=== PATIENT | female | born 1945 | race Caucasian/White ===

== ENCOUNTER → 2018-08-15 | Outpatient (REF) | payer MEDICARE ==
[~2018-08-15] MED LIST: ANTIVERT12.5 MG PO; ATIVAN OR; AUGMENTIN875TAB OR; CARAFATE OR; CARAFATE1 GM PO; CIPROFLOXACN500 MG PO; CLARITIN10 M1 PO; COUMADIN1 MG; COUMADIN2.5 MG PO; COUMADIN5 MG; COUMADIN5 MG PO; COUMADIN7.5 MG PO; ELIMITE5 % EX; FAMOTIDINE20 M1 PO; FLEXERIL10 MG PO; HYDROXYZ HCL25 MG PO; LORTAB 5/3255 MG PO; LORTAB5 PO; MEDDOSEPAK PO; MELOXICAM7.5 MG PO; MOBIC7.5 MG PO; NAPROSYN500 MG PO; NO HOME MEDS; OMEPRAZOLE20 MG PO; PHENERGAN25 MG/ML IJ; PRILOSEC40 MG PO; SERTRALINE50 MG OR; SILVADENE1 % EX; TEARS NATURA OU; TESSALON200 MG PO; TORADOL IM; TORADOL30 MG/VIAL IJ; TRIAMCINOLON0.11 EX; ZESTRIL10 M1 PO; ZOSTAVAX IM
== END | disposition home or self-care (01) ==
LOC: MAMMO 07:09
PROVIDERS: ATTEND Nurse Practitioner Family
DX: Z12.31 Encounter for screening mammogram for malignant neoplasm of breast (principal); N95.1 Menopausal and female climacteric states

== ENCOUNTER 2019-07-25 | Emergency (ER) | payer MEDICARE ==
[2019-07-25] MEDS ORDERED: ZOLOFT25 MG PO (10:02)
[2019-07-25] MEDS ORDERED: AMBIEN5 MG PO (10:03)
[2019-07-25 10:21] LABS: HEMATOCRIT 40.5 % (37.0-47.0); HEMOGLOBIN 13.8 g/dl (12.0-16.0); IMMATURE GRANULOCYTES 0.3 % (0.0-5.0); MEAN CORPUSCULAR HGB CONC 34.1 g/L CALC (32.0-36.0); NEUT# 4.3 thou/uL (2.00-7.15); RED BLOOD COUNT 4.45 mill/uL (4.20-5.60); RED CELL DISTRI WIDTH 13.8 % (11.5-15.5)
[2019-07-25 10:42] LABS: ALBUMIN 3.9 g/dL (3.2-5.0); ALKALINE PHOSPHATASE 93 u/l (38-126); BILIRUBIN, TOTAL 0.7 mg/dL (0.0-1.4); BUN 9 mg/dL (8-23); BUN/CREATININE RATIO 13 (12-20 (CALC)); CHLORIDE 105 mmol/l (95-108); CREATININE 0.7 mg/dL (0.5-1.0); GFR > 60 ML/MIN (>=60 (CALC)); GFR FOR AFR.AMER. > 60 ML/MIN (>=60 (CALC)); LIPASE 57 u/l (23-300); POTASSIUM 4.3 mmol/l (3.5-5.1); SGOT/AST 32 u/l (9-36); SODIUM 135 mmol/l (137-146); TOTAL PROTEIN 6.4 g/dL (6.3-8.2)
[2019-07-25 10:43] LABS: ANION GAP 12 (6-22 (CALC))
[2019-07-25 10:44] LABS: AMYLASE < 30 u/l (30-110); CARBON DIOXIDE 22 mmol/l (22-30)
[2019-07-25 10:46] LABS: INTERNATIONAL NORMALIZED RATIO 2.7 RATIO (0.7-1.3); PROTHROMBIN TIME 26.6 SECONDS (9.0-12.5)
[2019-07-25 10:53] LABS: MYOGLOBIN 98 ng/mL (0 - 62)
[2019-07-25] MEDS ORDERED: TORADOL PO (11:07)
== END 2019-07-25 11:28 | disposition home or self-care (01) ==
PROVIDERS: Family Medicine
DX: R07.89 Other chest pain (principal); Z79.01 Long term (current) use of anticoagulants

== ENCOUNTER 2020-11-08 10:06 | Emergency (ER) | payer MEDICARE ==
[~2020-11-08] VITALS: Ht 160 cm; Wt 61.3 kg
[~2020-11-08 10:06] MED LIST changes: +AMBIEN5 MG PO; +ESCITALOPRAM OX10 MG PO; +TORADOL PO; +XARELTO10 MG PO; +ZOLOFT25 MG PO
[2020-11-08 11:28] LABS: HEMATOCRIT 43.8 % (37.0-47.0); HEMOGLOBIN 14.6 g/dl (12.0-16.0); IMMATURE GRANULOCYTES 0.3 % (0.0-5.0); MEAN CELL VOLUME 96.1 fL CALC (80.0-100.0); MEAN CORPUSCULAR HGB CONC 33.3 g/dL CAL (32.0-36.0); NEUT# 4.62 thou/uL (2.00-7.15); RED BLOOD COUNT 4.56 mill/uL (4.20-5.60); RED CELL DISTRI WIDTH 13.3 % (11.5-15.5)
[2020-11-08 11:33] LABS: ALBUMIN 4.8 g/dL (3.2-5.0); ALKALINE PHOSPHATASE 101 u/l (38-126); AMYLASE 51 u/l (30-110); ANION GAP 13 (6-22 (CALC)); BILIRUBIN, TOTAL 0.7 mg/dL (0.0-1.4); BUN 15 mg/dL (8-23); BUN/CREATININE RATIO 17 (12-20 (CALC)); CARBON DIOXIDE 28 mmol/l (22-30); CHLORIDE 99 mmol/l (95-108); CREATININE 0.9 mg/dL (0.5-1.0); GFR > 60 ML/MIN (>=60 (CALC)); GFR FOR AFR.AMER. > 60 ML/MIN (>=60 (CALC)); LIPASE 79 u/l (23-300); POTASSIUM 4.1 mmol/l (3.5-5.1); SODIUM 135 mmol/l (137-146); TOTAL PROTEIN 8.3 g/dL (6.3-8.2)
[2020-11-08 11:35] LABS: SGOT/AST 45 u/l (9-36)
[2020-11-08 14:52] VITALS: BP 121/56
[2020-11-21] MEDS ORDERED: BUPROPN HCL300 MG PO (10:24)
[2020-11-21] MEDS ORDERED: BUSPIRONE5 MG PO (10:24)
[2020-11-21] MEDS ORDERED: SENNA-TABS8.6 MG PO (10:25)
[2020-11-21] MEDS ORDERED: CALCI23 PO (10:25)
[2021-01-31] MEDS ORDERED: CIPROFLOXACN500 MG PO (09:28)
== END 2020-11-08 15:01 | disposition home or self-care (01) ==
LOC: ED 10:06
PROVIDERS: Emergency Medicine
DX: K57.91 Diverticulosis of intestine, part unspecified, without perforation or abscess with bleeding (principal); K64.8 Other hemorrhoids; K58.0 Irritable bowel syndrome with diarrhea; K22.70 Barrett's esophagus without dysplasia; Z86.718 Personal history of other venous thrombosis and embolism; Z86.73 Personal history of transient ischemic attack (TIA), and cerebral infarction without residual deficits

== ENCOUNTER 2020-11-27 09:45 | Day surgery (SDC) | payer MEDICARE ==
[~2020-11-27 09:45] MED LIST changes: +BUPROPN HCL300 MG PO; +BUSPIRONE5 MG PO; +CALCI23 PO; +SENNA-TABS8.6 MG PO
[2020-11-27] MEDS ORDERED: PERCOCET 5/325M1 TAB PO (12:07)
[2020-11-27 12:57] LABS: ALKALINE PHOSPHATASE 64 u/l (38-126); BUN 14 mg/dL (8-23); CREATININE 0.7 mg/dL (0.5-1.0); GFR > 60 ML/MIN (>=60 (CALC)); GFR FOR AFR.AMER. > 60 ML/MIN (>=60 (CALC)); SGOT/AST 25 u/l (9-36)
[2020-11-27 13:04] LABS: ALBUMIN 3.5 g/dL (3.2-5.0); BILIRUBIN, TOTAL 0.4 mg/dL (0.0-1.4); TOTAL PROTEIN 5.8 g/dL (6.3-8.2)
[2020-11-27 13:34] VITALS: BP 134/57
[2021-01-31] MEDS ORDERED: CIPROFLOXACN500 MG PO (09:28)
== END 2020-11-28 13:05 | disposition home or self-care (01) ==
LOC: ORM 09:45
PROVIDERS: ATTEND Surgery
PROC: 0DBQ7ZX Excision of Anus, Via Natural or Artificial Opening, Diagnostic (ICD-10-PCS; principal; 2020-11-27)
DX: C21.0 Malignant neoplasm of anus, unspecified (principal); K62.5 Hemorrhage of anus and rectum; Z86.73 Personal history of transient ischemic attack (TIA), and cerebral infarction without residual deficits; Z86.010 Personal history of colon polyps; Z79.01 Long term (current) use of anticoagulants
CPT/HCPCS: C9290; J0131

== ENCOUNTER 2020-12-19 07:16 | Day surgery (SDC) | payer MEDICARE ==
[~2020-12-19 07:16] MED LIST changes: +PERCOCET 5/325M1 TAB PO
--- NOTE | 2020-12-19 09:49 | NUR ---
REQUESTED PER PATIENT, PROCEDURE NOTE FORWARDED TO CANCER SPECIALIST ATT. CHARGE NURSE NEIDA TO FAX # [phone]. ALSO, FORWARDED TO PCP FOR CONTINUITY OF CARE.
[2020-12-19 09:54] VITALS: BP 128/66
[2021-01-31] MEDS ORDERED: CIPROFLOXACN500 MG PO (09:28)
== END 2020-12-19 10:10 | disposition home or self-care (01) ==
LOC: ORM 07:16
PROVIDERS: ATTEND Surgery
PROC: 0JH63XZ Insertion of Tunneled Vascular Access Device into Chest Subcutaneous Tissue and Fascia, Percutaneous Approach (ICD-10-PCS; principal; 2020-12-19)
PROC: 02HV33Z Insertion of Infusion Device into Superior Vena Cava, Percutaneous Approach (ICD-10-PCS; 2020-12-19)
PROC: B518ZZA Fluoroscopy of Superior Vena Cava, Guidance (ICD-10-PCS; 2020-12-19)
DX: C21.0 Malignant neoplasm of anus, unspecified (principal); K62.5 Hemorrhage of anus and rectum; F41.9 Anxiety disorder, unspecified; Z20.822 Contact with and (suspected) exposure to COVID-19
CPT/HCPCS: J0131

== ENCOUNTER 2021-01-27 10:19 | Emergency (ER) | payer MEDICARE ==
[2021-01-27 12:44] LABS: ALKALINE PHOSPHATASE 57 u/l (38-126); AMYLASE 31 u/l (30-110); ANION GAP 10 (6-22 (CALC)); BILIRUBIN, TOTAL 0.4 mg/dL (0.0-1.4); BUN 7 mg/dL (8-23); BUN/CREATININE RATIO 10 (12-20 (CALC)); CARBON DIOXIDE 24 mmol/l (22-30); CHLORIDE 102 mmol/l (95-108); CREATININE 0.7 mg/dL (0.5-1.0); GFR > 60 ML/MIN (>=60 (CALC)); GFR FOR AFR.AMER. > 60 ML/MIN (>=60 (CALC)); LIPASE 45 u/l (23-300); POTASSIUM 3.6 mmol/l (3.5-5.1); SGOT/AST 19 u/l (9-36); SODIUM 133 mmol/l (137-146); TOTAL PROTEIN 5.6 g/dL (6.3-8.2)
[2021-01-27 13:11] LABS: HEMATOCRIT 28.9 % (37.0-47.0); HEMOGLOBIN 9.8 g/dl (12.0-16.0); MEAN CELL VOLUME 100.3 fL CALC (80.0-100.0); MEAN CORPUSCULAR HGB CONC 33.9 g/dL CAL (32.0-36.0); NEUT# 1.38 thou/uL (2.00-7.15); RED BLOOD COUNT 2.88 mill/uL (4.20-5.60); RED CELL DISTRI WIDTH 13.8 % (11.5-15.5)
[2021-01-27 15:42] LABS: URINE BLOOD DIPSTICK SMALL (NEGATIVE); URINE COLOR YELLOW; URINE GLUCOSE - DIPSTICK NEGATIVE (NEGATIVE); URINE KETONE 15 mg/dL (NEGATIVE); URINE PROTEIN - DIPSTICK TRACE mg/dL (NEG-TRACE); URINE SPECIFIC GRAVITY >=1.030; URINE UROBILINOGEN - DIPSTICK 0.2 E.U./dL (0.2)
[2021-01-27 15:43] LABS: URINE BILIRUBIN - DIPSTICK SMALL (NEGATIVE); URINE LEUK ESTERASE SMALL (NEGATIVE); URINE NITRITE - DIPSTICK NEGATIVE (Negative)
[2021-01-27] MEDS ORDERED: CIPROFLOXACN500 MG PO (15:48)
[2021-01-27 15:51] VITALS: BP 126/68
[2021-01-27 15:56] LABS: URINE SQUAMOUS EPITHELIAL CELL FEW EPI/hpf (0-FEW); URINE WBC 50-100 WBC/hpf (0-5)
[2021-01-31] MEDS ORDERED: CIPROFLOXACN500 MG PO (09:28)
[2021-05-22] MEDS ORDERED: DIFLUCAN100 M1 PO (10:00)
[2021-05-25] MEDS ORDERED: DIFLUCAN100 M1 PO (14:05)
== END 2021-01-27 16:07 | disposition home or self-care (01) ==
LOC: ED 10:19
DX: R53.1 Weakness (principal); R11.0 Nausea; R07.9 Chest pain, unspecified; R63.0 Anorexia; Y84.2 Radiological procedure and radiotherapy as the cause of abnormal reaction of the patient, or of later complication, without mention of misadventure at the time of the procedure; C50.919 Malignant neoplasm of unspecified site of unspecified female breast; C78.89 Secondary malignant neoplasm of other digestive organs; C78.5 Secondary malignant neoplasm of large intestine and rectum; N39.0 Urinary tract infection, site not specified; B96.20 Unspecified Escherichia coli [E. coli] as the cause of diseases classified elsewhere; K52.9 Noninfective gastroenteritis and colitis, unspecified; Z86.718 Personal history of other venous thrombosis and embolism; Z86.73 Personal history of transient ischemic attack (TIA), and cerebral infarction without residual deficits; Z92.21 Personal history of antineoplastic chemotherapy

== ENCOUNTER 2021-02-16 11:54 | Emergency (ER) | payer MEDICARE ==
[~2021-02-16] VITALS: Ht 160 cm; Wt 60.4 kg
[2021-02-16 13:17] LABS: HEMATOCRIT 36.4 % (37.0-47.0); IMMATURE GRANULOCYTES 0.6 % (0.0-5.0); MEAN CELL VOLUME 100.8 fL CALC (80.0-100.0); MEAN CORPUSCULAR HGB 33.2 pG CALC (26.0-32.0); NEUT# 2.8 thou/uL (2.00-7.15); RED BLOOD COUNT 3.61 mill/uL (4.20-5.60); RED CELL DISTRI WIDTH 14.5 % (11.5-15.5)
[2021-02-16 13:25] LABS: ALBUMIN 3.6 g/dL (3.2-5.0); ALKALINE PHOSPHATASE 74 u/l (38-126); AMYLASE 32 u/l (30-110); BILIRUBIN, TOTAL 0.3 mg/dL (0.0-1.4); BUN 12 mg/dL (8-23); BUN/CREATININE RATIO 15 (12-20 (CALC)); CHLORIDE 98 mmol/l (95-108); CREATININE 0.8 mg/dL (0.5-1.0); GFR > 60 ML/MIN (>=60 (CALC)); GFR FOR AFR.AMER. > 60 ML/MIN (>=60 (CALC)); LIPASE 31 u/l (23-300); SODIUM 134 mmol/l (137-146); TOTAL PROTEIN 6.7 g/dL (6.3-8.2)
[2021-02-16 13:28] LABS: ANION GAP 8 (6-22 (CALC)); CARBON DIOXIDE 32 mmol/l (22-30); SGOT/AST 38 u/l (9-36)
[2021-02-16 13:37] LABS: MYOGLOBIN 36 ng/mL (0 - 62)
[2021-02-16 15:57] LABS: URINE BILIRUBIN - DIPSTICK NEGATIVE (NEGATIVE); URINE BLOOD DIPSTICK NEGATIVE (NEGATIVE); URINE COLOR YELLOW; URINE GLUCOSE - DIPSTICK NEGATIVE (NEGATIVE); URINE KETONE NEGATIVE (NEGATIVE); URINE LEUK ESTERASE TRACE (NEGATIVE); URINE PROTEIN - DIPSTICK NEGATIVE (NEG-TRACE); URINE SPECIFIC GRAVITY 1.025; URINE UROBILINOGEN - DIPSTICK 0.2 E.U./dL (0.2)
[2021-02-16 15:59] LABS: URINE NITRITE - DIPSTICK NEGATIVE (Negative)
[2021-02-16 16:28] VITALS: BP 158/68
[2021-05-22] MEDS ORDERED: DIFLUCAN100 M1 PO (10:00)
[2021-05-25] MEDS ORDERED: DIFLUCAN100 M1 PO (14:05)
== END 2021-02-16 16:50 | disposition home or self-care (01) ==
LOC: ED 11:54
DX: R53.1 Weakness (principal); C50.919 Malignant neoplasm of unspecified site of unspecified female breast; C79.9 Secondary malignant neoplasm of unspecified site; Z86.73 Personal history of transient ischemic attack (TIA), and cerebral infarction without residual deficits; Z86.718 Personal history of other venous thrombosis and embolism; Z92.21 Personal history of antineoplastic chemotherapy; Z92.3 Personal history of irradiation; Z20.822 Contact with and (suspected) exposure to COVID-19

== ENCOUNTER 2021-02-24 11:58 | Emergency (ER) | payer MEDICARE ==
[~2021-02-24] VITALS: Ht 160 cm; Wt 59.5 kg
[2021-02-24] MEDS ORDERED: HYDROMORPHON4 MG PO (13:31)
[2021-02-24] MEDS ORDERED: ZOFRAN4 MG/TAB PO (13:32)
[2021-02-24 14:03] LABS: HEMATOCRIT 31.5 % (37.0-47.0); HEMOGLOBIN 10.2 g/dl (12.0-16.0); IMMATURE GRANULOCYTES 0.7 % (0.0-5.0); MEAN CELL VOLUME 101.9 fL CALC (80.0-100.0); MEAN CORPUSCULAR HGB CONC 32.4 g/dL CAL (32.0-36.0); NEUT# 2.25 thou/uL (2.00-7.15); RED BLOOD COUNT 3.09 mill/uL (4.20-5.60); RED CELL DISTRI WIDTH 14.3 % (11.5-15.5)
[2021-02-24 14:14] LABS: ALBUMIN 2.9 g/dL (3.2-5.0); ALKALINE PHOSPHATASE 75 u/l (38-126); ANION GAP 9 (6-22 (CALC)); BILIRUBIN, TOTAL 0.2 mg/dL (0.0-1.4); BUN 16 mg/dL (8-23); BUN/CREATININE RATIO 25 (12-20 (CALC)); CARBON DIOXIDE 28 mmol/l (22-30); CHLORIDE 100 mmol/l (95-108); CREATININE 0.6 mg/dL (0.5-1.0); GFR > 60 ML/MIN (>=60 (CALC)); GFR FOR AFR.AMER. > 60 ML/MIN (>=60 (CALC)); POTASSIUM 4.2 mmol/l (3.5-5.1); SGOT/AST 33 u/l (9-36); SODIUM 134 mmol/l (137-146); TOTAL PROTEIN 5.3 g/dL (6.3-8.2)
[2021-02-24 18:04] LABS: URINE BILIRUBIN - DIPSTICK NEGATIVE (NEGATIVE); URINE BLOOD DIPSTICK NEGATIVE (NEGATIVE); URINE COLOR YELLOW; URINE GLUCOSE - DIPSTICK NEGATIVE (NEGATIVE); URINE KETONE TRACE mg/dL (NEGATIVE); URINE LEUK ESTERASE NEGATIVE (NEGATIVE); URINE PH 7.5 (4.5-8.0); URINE PROTEIN - DIPSTICK NEGATIVE (NEG-TRACE); URINE UROBILINOGEN - DIPSTICK 0.2 E.U./dL (0.2)
[2021-02-24 18:05] LABS: URINE NITRITE - DIPSTICK NEGATIVE (Negative)
[2021-02-24] MEDS ORDERED: ZOFRAN4 M1 PO (18:48)
[2021-02-24 19:10] VITALS: BP 153/67
== END 2021-02-24 19:10 | disposition home or self-care (01) ==
LOC: ED 11:58
PROVIDERS: Physician Assistant Surgical
DX: K62.89 Other specified diseases of anus and rectum (principal); R11.0 Nausea; K22.70 Barrett's esophagus without dysplasia; Z86.718 Personal history of other venous thrombosis and embolism; Z86.73 Personal history of transient ischemic attack (TIA), and cerebral infarction without residual deficits; Z85.3 Personal history of malignant neoplasm of breast; Z85.819 Personal history of malignant neoplasm of unspecified site of lip, oral cavity, and pharynx; Z85.048 Personal history of other malignant neoplasm of rectum, rectosigmoid junction, and anus

== ENCOUNTER 2021-04-29 02:22 | Emergency (ER) | payer MEDICARE ==
[~2021-04-29] VITALS: Wt 55.0 kg
[~2021-04-29 02:22] MED LIST changes: +HYDROMORPHON4 MG PO; +ZOFRAN4 M1 PO; +ZOFRAN4 MG/TAB PO
[2021-04-29] MEDS ORDERED: SENNA-TABS8.6 MG PO (02:39)
[2021-04-29] MEDS ORDERED: MIRALAX17 GM PO (02:40)
[2021-04-29] MEDS ORDERED: PREPARATION H PR (02:41)
[2021-04-29] MEDS ORDERED: BUPROPION100 MG PO (02:42)
[2021-04-29] MEDS ORDERED: XANAX0.25 MG PO (02:43)
[2021-04-29] MEDS ORDERED: TRAZODONE50 MG PO (02:44)
[2021-04-29 02:59] LABS: HEMATOCRIT 35.7 % (37.0-47.0); IMMATURE GRANULOCYTES 0.6 % (0.0-5.0); MEAN CELL VOLUME 95.7 fL CALC (80.0-100.0); MEAN CORPUSCULAR HGB 31.6 pG CALC (26.0-32.0); MEAN CORPUSCULAR HGB CONC 33.1 g/dL CAL (32.0-36.0); NEUT# 7.27 thou/uL (2.00-7.15); RED BLOOD COUNT 3.73 mill/uL (4.20-5.60); RED CELL DISTRI WIDTH 14.2 % (11.5-15.5)
[2021-04-29 03:00] LABS: HEMOGLOBIN 11.8 g/dl (12.0-16.0)
[2021-04-29 03:15] LABS: AMYLASE 46 u/l (30-110); BILIRUBIN, TOTAL 0.4 mg/dL (0.0-1.4); BUN 12 mg/dL (8-23); BUN/CREATININE RATIO 17 (12-20 (CALC)); CARBON DIOXIDE 30 mmol/l (22-30); CHLORIDE 107 mmol/l (95-108); CREATININE 0.7 mg/dL (0.5-1.0); GFR > 60 ML/MIN (>=60 (CALC)); GFR FOR AFR.AMER. > 60 ML/MIN (>=60 (CALC)); LIPASE 122 u/l (23-300); POTASSIUM 3.5 mmol/l (3.5-5.1); SGOT/AST 25 u/l (9-36); TOTAL PROTEIN 5.9 g/dL (6.3-8.2)
[2021-04-29 03:16] LABS: INTERNATIONAL NORMALIZED RATIO 0.9 RATIO (0.7-1.3); PROTHROMBIN TIME 9.9 SECONDS (9.0-12.5)
[2021-04-29 03:18] LABS: ALBUMIN 3.4 g/dL (3.2-5.0); ALKALINE PHOSPHATASE 65 u/l (38-126); ANION GAP 10 (6-22 (CALC)); SODIUM 143 mmol/l (137-146)
[2021-04-29 06:24] VITALS: BP 123/60
[2021-04-29 06:41] LABS: URINE BILIRUBIN - DIPSTICK NEGATIVE (NEGATIVE); URINE BLOOD DIPSTICK NEGATIVE (NEGATIVE); URINE COLOR YELLOW; URINE GLUCOSE - DIPSTICK NEGATIVE (NEGATIVE); URINE KETONE NEGATIVE (NEGATIVE); URINE LEUK ESTERASE NEGATIVE (NEGATIVE); URINE PH 7.5 (4.5-8.0); URINE PROTEIN - DIPSTICK NEGATIVE (NEG-TRACE); URINE SPECIFIC GRAVITY 1.015; URINE UROBILINOGEN - DIPSTICK 0.2 E.U./dL (0.2)
[2021-04-29 06:47] LABS: URINE NITRITE - DIPSTICK NEGATIVE (Negative)
--- NOTE | 2021-04-29 09:32 | NUR ---
PATIENT CALLED STATES WOULD LIKE TO SCHEDULE FOLLOW UP FROM ER VISIT. ATTEMPTED TO WORK IN PATIENT TODAY 04/29/21 IN OFFICE TO REVISIT WITH MD. PATIENT DECLINED STATED SHE COULD NOT COME IN "TODAY" RECOMMENDED TO FOLLOW UP WITH SPECIALIST PREVIOUSLY REFERRED BY DR. MELENDEZ TO DR. HASSAN FOR CONTINUE OF CARE. SHE STATED SHE WOULD LIKE AN APPOINTMENT "NEXT WEEK" WITH DR. MELENDEZ AND WILL CALL HER SPECIALIST TODAY FOR AN "APPOINTMENT LATER THIS WEEK" ADVISED PATIENT TO CALL OUR OFFICE IF SYMPTOMS CHANGE OR WOULD LIKE TO BE SEEN TODAY. NO FURTHER CONCERNS VOICED.
[2021-04-29] MEDS ORDERED: MEGACE ES PO (11:50)
[2021-04-29] MEDS ORDERED: ONDANSETRON HCL8 MG PO (11:50)
[2021-04-29] MEDS ORDERED: MIRTAZAPINE15 MG PO (11:50)
[2021-04-29] MEDS ORDERED: TRAMADOL HCL50 MG PO (11:51)
[2021-04-29] MEDS ORDERED: PROTONIX40 M2 PO (11:51)
[2021-04-30] MEDS ORDERED: AMOX/K CLAV875 M1 PO (11:41)
[2021-04-30] MEDS ORDERED: ZOFRAN4 MG/TAB PO (11:42)
== END 2021-04-29 06:30 | disposition home or self-care (01) ==
LOC: ED 02:22
DX: R10.84 Generalized abdominal pain (principal); K63.89 Other specified diseases of intestine; R11.2 Nausea with vomiting, unspecified; R19.7 Diarrhea, unspecified; C50.919 Malignant neoplasm of unspecified site of unspecified female breast; C79.9 Secondary malignant neoplasm of unspecified site; Z92.3 Personal history of irradiation; Z92.21 Personal history of antineoplastic chemotherapy; Z86.73 Personal history of transient ischemic attack (TIA), and cerebral infarction without residual deficits; Z86.718 Personal history of other venous thrombosis and embolism

== ENCOUNTER 2021-04-29 11:23 | Observation (INO) | payer MEDICARE ==
[~2021-04-29] VITALS: Ht 162.6 cm; Wt 78.4 kg
[~2021-04-29 11:23] MED LIST changes: +BUPROPION100 MG PO; +MIRALAX17 GM PO; +PREPARATION H PR; +TRAZODONE50 MG PO; +XANAX0.25 MG PO
[2021-04-29] MEDS ORDERED: ONDANSETRON HCL8 MG PO (11:50)
[2021-04-29] MEDS ORDERED: MEGACE ES PO (11:50)
[2021-04-29] MEDS ORDERED: MIRTAZAPINE15 MG PO (11:50)
[2021-04-29] MEDS ORDERED: PROTONIX40 M2 PO (11:51)
[2021-04-29] MEDS ORDERED: TRAMADOL HCL50 MG PO (11:51)
[2021-04-29 11:52] VITALS: BP 132/87
[2021-04-29 19:00] VITALS: BP 118/58
[2021-04-30 04:00] VITALS: BP 119/44
[2021-04-30 06:11] LABS: IMMATURE GRANULOCYTES 0.3 % (0.0-5.0); MEAN CELL VOLUME 96.9 fL CALC (80.0-100.0); MEAN CORPUSCULAR HGB 31.7 pG CALC (26.0-32.0); MEAN CORPUSCULAR HGB CONC 32.7 g/dL CAL (32.0-36.0); NEUT# 2.83 thou/uL (2.00-7.15); RED BLOOD COUNT 2.9 mill/uL (4.20-5.60); RED CELL DISTRI WIDTH 14.5 % (11.5-15.5)
[2021-04-30 06:19] LABS: HEMATOCRIT 28.1 % (37.0-47.0); HEMOGLOBIN 9.2 g/dl (12.0-16.0)
[2021-04-30 06:24] LABS: ANION GAP 5 (6-22 (CALC)); BUN 5 mg/dL (8-23); BUN/CREATININE RATIO 8 (12-20 (CALC)); CARBON DIOXIDE 30 mmol/l (22-30); CHLORIDE 105 mmol/l (95-108); CREATININE 0.6 mg/dL (0.5-1.0); GFR > 60 ML/MIN (>=60 (CALC)); GFR FOR AFR.AMER. > 60 ML/MIN (>=60 (CALC)); POTASSIUM 3.4 mmol/l (3.5-5.1); SODIUM 137 mmol/l (137-146)
[2021-04-30 07:40] VITALS: BP 134/80
[2021-04-30 10:54] VITALS: BP 117/57
[2021-04-30] MEDS ORDERED: AMOX/K CLAV875 M1 PO (11:41)
[2021-04-30] MEDS ORDERED: ZOFRAN4 MG/TAB PO (11:42)
== END 2021-04-30 12:50 | disposition home health service (06) ==
LOC: MS2 11:23
PROVIDERS: ADMIT Surgery; ATTEND Hospitalist
DX: K52.9 Noninfective gastroenteritis and colitis, unspecified (principal); D68.9 Coagulation defect, unspecified; K21.9 Gastro-esophageal reflux disease without esophagitis; F41.9 Anxiety disorder, unspecified; F32.9 Major depressive disorder, single episode, unspecified; Z86.73 Personal history of transient ischemic attack (TIA), and cerebral infarction without residual deficits; Z87.891 Personal history of nicotine dependence; Z86.718 Personal history of other venous thrombosis and embolism; Z85.048 Personal history of other malignant neoplasm of rectum, rectosigmoid junction, and anus; Z85.3 Personal history of malignant neoplasm of breast; Z79.01 Long term (current) use of anticoagulants; R11.10 Vomiting, unspecified; R10.84 Generalized abdominal pain; K63.89 Other specified diseases of intestine; R11.2 Nausea with vomiting, unspecified; R19.7 Diarrhea, unspecified; C50.919 Malignant neoplasm of unspecified site of unspecified female breast; Z92.3 Personal history of irradiation; Z92.21 Personal history of antineoplastic chemotherapy
CPT/HCPCS: G0378; G0379

== ENCOUNTER 2021-06-15 08:06 | Observation (INO) | payer MEDICARE ==
[~2021-06-15] VITALS: Ht 162.6 cm; Wt 51.0 kg
[~2021-06-15 08:06] MED LIST changes: +AMOX/K CLAV875 M1 PO; +DIFLUCAN100 M1 PO; +MEGACE ES PO; +MIRTAZAPINE15 MG PO; +ONDANSETRON HCL8 MG PO; +PROTONIX40 M2 PO; +TRAMADOL HCL50 MG PO
--- NOTE | 2021-06-15 08:06 | NUR ---
PT TO ROOM VIA WC IN NO ACUTE DISTRESS WITH AT SIDE
[2021-06-15 08:41] LABS: HEMATOCRIT 39.1 % (37.0-47.0); HEMOGLOBIN 12.4 g/dl (12.0-16.0); IMMATURE GRANULOCYTES 0.2 % (0.0-5.0); MEAN CORPUSCULAR HGB 31.1 pG CALC (26.0-32.0); MEAN CORPUSCULAR HGB CONC 31.7 g/dL CAL (32.0-36.0); NEUT# 3.89 thou/uL (2.00-7.15); RED BLOOD COUNT 3.99 mill/uL (4.20-5.60); RED CELL DISTRI WIDTH 14.3 % (11.5-15.5)
[2021-06-15 08:42] LABS: GFR > 60 ML/MIN (>=60 (CALC)); GFR FOR AFR.AMER. > 60 ML/MIN (>=60 (CALC))
[2021-06-15] MEDS ORDERED: MEGESTROL AC20 MG PO (08:42)
[2021-06-15] MEDS ORDERED: TRAZODONE50 MG PO (08:43)
[2021-06-15] MEDS ORDERED: BUSPIRONE10 MG PO (08:44)
--- NOTE | 2021-06-15 08:49 | NUR ---
IV INSERTED, LABS COLLECTED, PATIENT AMBULATED TO RESTROOM AND SUPPLIED URINE SAMPLE. WARM BLANKETS APPLIED. RECONNECTED TO THE MONITOR. LIGHTS DIMMED. PATIENT MEDICATED FOR CT SCAN CONTRAST. NO ACUTE DISTRESS. DECLINES FURTHER NEEDS AT THIS TIME.
[2021-06-15 08:56] LABS: ALBUMIN 3.5 g/dL (3.2-5.0); ALKALINE PHOSPHATASE 67 u/l (38-126); ANION GAP 9 (6-22 (CALC)); BILIRUBIN, TOTAL 0.5 mg/dL (0.0-1.4); BUN 14 mg/dL (8-23); BUN/CREATININE RATIO 18 (12-20 (CALC)); CARBON DIOXIDE 28 mmol/l (22-30); CHLORIDE 103 mmol/l (95-108); CREATININE 0.7 mg/dL (0.5-1.0); GFR > 60 ML/MIN (>=60 (CALC)); GFR FOR AFR.AMER. > 60 ML/MIN (>=60 (CALC)); POTASSIUM 3.5 mmol/l (3.5-5.1); SGOT/AST 18 u/l (9-36); SODIUM 136 mmol/l (137-146); TOTAL PROTEIN 6.3 g/dL (6.3-8.2)
[2021-06-15 09:20] LABS: URINE BILIRUBIN - DIPSTICK NEGATIVE (NEGATIVE); URINE BLOOD DIPSTICK TRACE-INTACT (NEGATIVE); URINE COLOR YELLOW; URINE GLUCOSE - DIPSTICK NEGATIVE (NEGATIVE); URINE KETONE TRACE mg/dL (NEGATIVE); URINE LEUK ESTERASE TRACE (NEGATIVE); URINE PH 5.5 (4.5-8.0); URINE PROTEIN - DIPSTICK TRACE mg/dL (NEG-TRACE); URINE SPECIFIC GRAVITY >=1.030; URINE UROBILINOGEN - DIPSTICK 0.2 E.U./dL (0.2)
[2021-06-15 09:21] LABS: URINE NITRITE - DIPSTICK NEGATIVE (Negative)
--- NOTE | 2021-06-15 09:50 | NUR ---
Reassessment of patient completed. No distress noted.
--- NOTE | 2021-06-15 10:49 | NUR ---
Reassessment of patient completed. No distress noted.
--- NOTE | 2021-06-15 13:10 | NUR ---
IV REMOVED WITHOUT DIFFICULTY. UPDATED ON WAIT FOR D/C , STATES UNDERSTANDING
--- NOTE | 2021-06-15 13:35 | NUR ---
Discharge instructions given. Patient verbalizes understanding of same. Discharged in stable condition via Wheelchair to Home with spouse. All belongings sent with pt.
[2021-06-15 13:45] VITALS: BP 133/60
== END 2021-06-15 13:35 | disposition home or self-care (01) ==
LOC: ED 08:06 → ED-I 09:50 → ED 13:35 → ED-I 13:35
PROVIDERS: Family Medicine; ADMIT Hospitalist; ATTEND Hospitalist
DX: T82.848A Pain due to vascular prosthetic devices, implants and grafts, initial encounter (principal); C15.9 Malignant neoplasm of esophagus, unspecified; C50.919 Malignant neoplasm of unspecified site of unspecified female breast; C79.9 Secondary malignant neoplasm of unspecified site; D68.2 Hereditary deficiency of other clotting factors; K21.9 Gastro-esophageal reflux disease without esophagitis; F41.9 Anxiety disorder, unspecified; F32.A Depression, unspecified; Y83.8 Other surgical procedures as the cause of abnormal reaction of the patient, or of later complication, without mention of misadventure at the time of the procedure; Z86.73 Personal history of transient ischemic attack (TIA), and cerebral infarction without residual deficits; Z86.718 Personal history of other venous thrombosis and embolism; Z91.041 Radiographic dye allergy status; Z95.828 Presence of other vascular implants and grafts; Z87.891 Personal history of nicotine dependence; Z85.048 Personal history of other malignant neoplasm of rectum, rectosigmoid junction, and anus; Z20.822 Contact with and (suspected) exposure to COVID-19
CPT/HCPCS: Q9967

== ENCOUNTER 2021-07-01 16:02 | Emergency (ER) | payer MEDICARE ==
[~2021-07-01] VITALS: Ht 162.6 cm; Wt 52.0 kg
[~2021-07-01 16:02] MED LIST changes: +BUSPIRONE10 MG PO; +MEGESTROL AC20 MG PO
[2021-07-01 16:50] LABS: HEMOGLOBIN 12.1 g/dl (12.0-16.0); IMMATURE GRANULOCYTES 0.8 % (0.0-5.0); MEAN CELL VOLUME 97.4 fL CALC (80.0-100.0); MEAN CORPUSCULAR HGB CONC 31.8 g/dL CAL (32.0-36.0); NEUT# 2.85 thou/uL (2.00-7.15); RED BLOOD COUNT 3.9 mill/uL (4.20-5.60); RED CELL DISTRI WIDTH 14.6 % (11.5-15.5)
[2021-07-01 17:09] LABS: ALBUMIN 3.9 g/dL (3.2-5.0); ALKALINE PHOSPHATASE 74 u/l (38-126); ANION GAP 14 (6-22 (CALC)); BILIRUBIN, TOTAL 0.3 mg/dL (0.0-1.4); BUN 15 mg/dL (8-23); BUN/CREATININE RATIO 17 (12-20 (CALC)); CARBON DIOXIDE 24 mmol/l (22-30); CHLORIDE 105 mmol/l (95-108); CREATININE 0.9 mg/dL (0.5-1.0); GFR > 60 ML/MIN (>=60 (CALC)); GFR FOR AFR.AMER. > 60 ML/MIN (>=60 (CALC)); POTASSIUM 3.7 mmol/l (3.5-5.1); SGOT/AST 24 u/l (9-36); SODIUM 139 mmol/l (137-146); TOTAL PROTEIN 6.5 g/dL (6.3-8.2)
[2021-07-01 17:45] LABS: MYOGLOBIN 21 ng/mL (0 - 62)
[2021-07-01 17:52] VITALS: BP 144/70
== END 2021-07-01 18:09 | disposition home or self-care (01) ==
LOC: ED 16:02
PROVIDERS: Emergency Medicine
DX: U07.1 COVID-19 (principal); D68.2 Hereditary deficiency of other clotting factors; Z85.3 Personal history of malignant neoplasm of breast; Z86.73 Personal history of transient ischemic attack (TIA), and cerebral infarction without residual deficits; Z86.718 Personal history of other venous thrombosis and embolism; R06.02 Shortness of breath

== ENCOUNTER 2021-09-10 08:57 | Day surgery (SDC) | payer MEDICARE ==
[~2021-09-10] VITALS: Ht 160 cm; Wt 52.6 kg
[~2021-09-10 08:57] MED LIST changes: +D 10001000 UNIT PO; +TRAMADOL HYDROC50 M1 PO; +WELLBUTRIN XL300 MG PO
[2021-09-10] MEDS ORDERED: HYDROCORTI100 MG/60 PR (12:08)
[2021-09-10 12:20] VITALS: BP 113/56
== END 2021-09-10 12:55 | disposition home or self-care (01) ==
LOC: ENDO 08:57 → ORM 09:30 → ENDO 12:55
PROVIDERS: ATTEND Surgery
PROC: 0DBH8ZX Excision of Cecum, Via Natural or Artificial Opening Endoscopic, Diagnostic (ICD-10-PCS; principal; 2021-09-10)
PROC: 0DBL8ZX Excision of Transverse Colon, Via Natural or Artificial Opening Endoscopic, Diagnostic (ICD-10-PCS; 2021-09-10)
PROC: 0DBP8ZX Excision of Rectum, Via Natural or Artificial Opening Endoscopic, Diagnostic (ICD-10-PCS; 2021-09-10)
PROC: 0DBM8ZX Excision of Descending Colon, Via Natural or Artificial Opening Endoscopic, Diagnostic (ICD-10-PCS; 2021-09-10)
PROC: 0JPT3WZ Removal of Totally Implantable Vascular Access Device from Trunk Subcutaneous Tissue and Fascia, Percutaneous Approach (ICD-10-PCS; 2021-09-10)
PROC: 02PY33Z Removal of Infusion Device from Great Vessel, Percutaneous Approach (ICD-10-PCS; 2021-09-10)
DX: K62.7 Radiation proctitis (principal); D12.0 Benign neoplasm of cecum; D12.4 Benign neoplasm of descending colon; D12.3 Benign neoplasm of transverse colon; K63.89 Other specified diseases of intestine; Z45.2 Encounter for adjustment and management of vascular access device; K21.9 Gastro-esophageal reflux disease without esophagitis; D68.9 Coagulation defect, unspecified; F32.A Depression, unspecified; F41.9 Anxiety disorder, unspecified; Y84.2 Radiological procedure and radiotherapy as the cause of abnormal reaction of the patient, or of later complication, without mention of misadventure at the time of the procedure; Z85.048 Personal history of other malignant neoplasm of rectum, rectosigmoid junction, and anus; Z79.01 Long term (current) use of anticoagulants; Z86.718 Personal history of other venous thrombosis and embolism; Z87.891 Personal history of nicotine dependence; Z92.21 Personal history of antineoplastic chemotherapy
CPT/HCPCS: C9290

== ENCOUNTER 2021-11-10 06:59 | Emergency (ER) | payer MEDICARE ==
[~2021-11-10] VITALS: Ht 160 cm; Wt 59.0 kg
[2021-11-10] VITALS (9 sets, daily range): BP systolic 115–235; BP diastolic 56–130
[~2021-11-10 06:59] MED LIST changes: +CARAFATE PO; +CARAFATE1 GM/10 M1 PR; +HYDROCORTI100 MG/60 PR
[2021-11-10] MEDS ORDERED: B-121000 MC1 PO (07:24)
[2021-11-10] MEDS ORDERED: MIRALAX MIX-IN17 GM (07:25)
[2021-11-10] MEDS ORDERED: SENNA-TABS8.6 MG PO (07:25)
[2021-11-10] MEDS ORDERED: PREPARATIO1 RE (07:26)
[2021-11-10 07:27] LABS: HEMATOCRIT 36.8 % (37.0-47.0); HEMOGLOBIN 11.8 g/dl (12.0-16.0); IMMATURE GRANULOCYTES 0.2 % (0.0-5.0); MEAN CELL VOLUME 97.1 fL CALC (80.0-100.0); MEAN CORPUSCULAR HGB 31.1 pG CALC (26.0-32.0); MEAN CORPUSCULAR HGB CONC 32.1 g/dL CAL (32.0-36.0); NEUT# 4.88 thou/uL (2.00-7.15); RED BLOOD COUNT 3.79 mill/uL (4.20-5.60); RED CELL DISTRI WIDTH 14.7 % (11.5-15.5)
[2021-11-10 08:04] LABS: ALBUMIN 3.9 g/dL (3.2-5.0); ALKALINE PHOSPHATASE 76 u/l (38-126); ANION GAP 12 (6-22 (CALC)); BILIRUBIN, TOTAL 0.4 mg/dL (0.0-1.4); BUN 20 mg/dL (8-23); BUN/CREATININE RATIO 21 (12-20 (CALC)); CARBON DIOXIDE 24 mmol/l (22-30); CHLORIDE 106 mmol/l (95-108); GFR 54 ML/MIN (>=60 (CALC)); GFR FOR AFR.AMER. > 60 ML/MIN (>=60 (CALC)); POTASSIUM 4.2 mmol/l (3.5-5.1); SGOT/AST 18 u/l (9-36); SODIUM 138 mmol/l (137-146); TOTAL PROTEIN 6.4 g/dL (6.3-8.2)
== END 2021-11-10 09:36 | disposition home or self-care (01) ==
LOC: ED 06:59
PROVIDERS: Family Medicine
PROC: 0HQ1XZZ Repair Face Skin, External Approach (ICD-10-PCS; principal; 2021-11-10)
DX: S06.0X0A Concussion without loss of consciousness, initial encounter (principal); S01.112A Laceration without foreign body of left eyelid and periocular area, initial encounter; D68.2 Hereditary deficiency of other clotting factors; W01.190A Fall on same level from slipping, tripping and stumbling with subsequent striking against furniture, initial encounter; Y92.003 Bedroom of unspecified non-institutional (private) residence as the place of occurrence of the external cause; Z86.73 Personal history of transient ischemic attack (TIA), and cerebral infarction without residual deficits; Z86.718 Personal history of other venous thrombosis and embolism; Z85.3 Personal history of malignant neoplasm of breast; Z79.01 Long term (current) use of anticoagulants

== ENCOUNTER 2022-01-06 13:29 | Observation (INO) | payer MEDICARE ==
[~2022-01-06] VITALS: Ht 160 cm; Wt 56.4 kg
[~2022-01-06 13:29] MED LIST changes: +B-121000 MC1 PO; +MIRALAX MIX-IN17 GM; +PREPARATIO1 RE
[2022-01-06 13:45] VITALS: BP 145/74
[2022-01-06 19:23] VITALS: BP 148/69
[2022-01-07 04:19] VITALS: BP 141/66
[2022-01-07 05:30] LABS: HEMATOCRIT 36.7 % (37.0-47.0); HEMOGLOBIN 12.1 g/dl (12.0-16.0); MEAN CELL VOLUME 96.3 fL CALC (80.0-100.0); MEAN CORPUSCULAR HGB 31.8 pG CALC (26.0-32.0); RED BLOOD COUNT 3.81 mill/uL (4.20-5.60); RED CELL DISTRI WIDTH 14.5 % (11.5-15.5)
[2022-01-07 05:59] LABS: ANION GAP 9 (6-22 (CALC)); BUN 9 mg/dL (8-23); BUN/CREATININE RATIO 11 (12-20 (CALC)); CARBON DIOXIDE 23 mmol/l (22-30); CHLORIDE 107 mmol/l (95-108); CREATININE 0.8 mg/dL (0.5-1.0); GFR FOR AFR.AMER. > 60 ML/MIN (>=60 (CALC)); GFR OTHER RACES > 60 ML/MIN (>=60 (CALC)); POTASSIUM 3.7 mmol/l (3.5-5.1); SODIUM 135 mmol/l (137-146)
[2022-01-07 07:16] VITALS: BP 134/51
[2022-01-07] MEDS ORDERED: BUDESONIDE PR (11:22)
[2022-01-07] MEDS ORDERED: MEDDOSEPAK PO (11:26)
[2022-01-07 12:00] VITALS: BP 121/102
[2022-01-07 12:58] VITALS: BP 128/70
== END 2022-01-07 12:59 | disposition home or self-care (01) ==
LOC: MS2 13:29
PROVIDERS: ADMIT Surgery; ATTEND Internal Medicine
PROC: 0DBL8ZX Excision of Transverse Colon, Via Natural or Artificial Opening Endoscopic, Diagnostic (ICD-10-PCS; principal; 2022-01-07)
PROC: 0DB48ZX Excision of Esophagogastric Junction, Via Natural or Artificial Opening Endoscopic, Diagnostic (ICD-10-PCS; 2022-01-07)
DX: K62.7 Radiation proctitis (principal); K62.5 Hemorrhage of anus and rectum; D12.3 Benign neoplasm of transverse colon; K57.30 Diverticulosis of large intestine without perforation or abscess without bleeding; K44.9 Diaphragmatic hernia without obstruction or gangrene; K20.90 Esophagitis, unspecified without bleeding; K21.9 Gastro-esophageal reflux disease without esophagitis; F41.9 Anxiety disorder, unspecified; F32.A Depression, unspecified; K58.9 Irritable bowel syndrome, unspecified; C20 Malignant neoplasm of rectum; Y84.2 Radiological procedure and radiotherapy as the cause of abnormal reaction of the patient, or of later complication, without mention of misadventure at the time of the procedure; Z87.891 Personal history of nicotine dependence; Z86.718 Personal history of other venous thrombosis and embolism; Z20.822 Contact with and (suspected) exposure to COVID-19
CPT/HCPCS: G0378; G0379

== ENCOUNTER 2022-04-27 08:12 | Day surgery (SDC) | payer MEDICARE ==
[~2022-04-27] VITALS: Ht 160 cm; Wt 61.2 kg
[~2022-04-27 08:12] MED LIST changes: +BUDESONIDE PR
[2022-04-27] MEDS ORDERED: MEDDOSEPAK PO (10:58)
[2022-04-27 12:29] VITALS: BP 137/67
== END 2022-04-27 12:19 | disposition home or self-care (01) ==
LOC: ENDO 08:12 → ORM 09:35 → ENDO 12:19
PROVIDERS: ATTEND Surgery
PROC: 0DJD8ZZ Inspection of Lower Intestinal Tract, Via Natural or Artificial Opening Endoscopic (ICD-10-PCS; principal; 2022-04-27)
PROC: 0DJ08ZZ Inspection of Upper Intestinal Tract, Via Natural or Artificial Opening Endoscopic (ICD-10-PCS; 2022-04-27)
DX: K62.7 Radiation proctitis (principal); K29.70 Gastritis, unspecified, without bleeding; K44.9 Diaphragmatic hernia without obstruction or gangrene; E78.5 Hyperlipidemia, unspecified; F41.9 Anxiety disorder, unspecified; D68.2 Hereditary deficiency of other clotting factors; G25.0 Essential tremor; Y84.2 Radiological procedure and radiotherapy as the cause of abnormal reaction of the patient, or of later complication, without mention of misadventure at the time of the procedure; Z92.3 Personal history of irradiation; Z85.3 Personal history of malignant neoplasm of breast; Z85.048 Personal history of other malignant neoplasm of rectum, rectosigmoid junction, and anus

== ENCOUNTER 2022-07-28 11:14 | Emergency (ER) | payer MEDICARE ==
[2022-07-28] VITALS (8 sets, daily range): BP systolic 113–162; BP diastolic 45–136
[~2022-07-28] VITALS: Ht 160 cm; Wt 54.0 kg
[~2022-07-28 11:14] MED LIST changes: +PERCOCET 5/321 COMBO PO
[2022-07-28 12:20] LABS: GFR FOR AFR.AMER. > 60 ML/MIN (>=60 (CALC)); GFR OTHER RACES > 60 ML/MIN (>=60 (CALC))
[2022-07-28 12:21] LABS: URINE BILIRUBIN - DIPSTICK NEGATIVE (NEGATIVE); URINE BLOOD DIPSTICK TRACE-INTACT (NEGATIVE); URINE COLOR YELLOW; URINE GLUCOSE - DIPSTICK NEGATIVE (NEGATIVE); URINE KETONE NEGATIVE (NEGATIVE); URINE LEUK ESTERASE NEGATIVE (NEGATIVE); URINE NITRITE - DIPSTICK NEGATIVE (Negative); URINE PH 5.5 (4.5-8.0); URINE PROTEIN - DIPSTICK NEGATIVE (NEG-TRACE); URINE SPECIFIC GRAVITY >=1.030; URINE UROBILINOGEN - DIPSTICK 0.2 E.U./dL (0.2)
[2022-07-28 12:21] LABS: BASO% 0.5 % (0-3); EOS% 3.2 % (0-8); HEMATOCRIT 28.3 % (37.0-47.0); HEMOGLOBIN 8.7 g/dl (12.0-16.0); IMMATURE GRANULOCYTES 0.2 % (0.0-5.0); LYMPH% 4.7 % (15-41); MEAN CELL VOLUME 98.6 fL CALC (80.0-100.0); MEAN CORPUSCULAR HGB 30.3 pG CALC (26.0-32.0); MEAN CORPUSCULAR HGB CONC 30.7 g/dL CAL (32.0-36.0); MONO% 7.5 % (2-13); NEUT# 4.68 thou/uL (2.00-7.15); NEUT% 83.9 % (42-76); RED BLOOD COUNT 2.87 mill/uL (4.20-5.60); RED CELL DISTRI WIDTH 14.4 % (11.5-15.5)
[2022-07-28 12:59] LABS: ALBUMIN 4.1 g/dL (3.2-5.0); ALKALINE PHOSPHATASE 91 u/l (38-126); ANION GAP 10 (6-22 (CALC)); BUN 18 mg/dL (8-23); BUN/CREATININE RATIO 24 (12-20 (CALC)); CARBON DIOXIDE 24 mmol/l (22-30); CHLORIDE 108 mmol/l (95-108); CREATININE 0.7 mg/dL (0.5-1.0); GFR FOR AFR.AMER. > 60 ML/MIN (>=60 (CALC)); GFR OTHER RACES > 60 ML/MIN (>=60 (CALC)); LIPASE 35 u/l (23-300); POTASSIUM 3.9 mmol/l (3.5-5.1); SGOT/AST 23 u/l (9-36); SODIUM 138 mmol/l (137-146); TOTAL PROTEIN 6.3 g/dL (6.3-8.2)
[2022-07-28 13:03] LABS: BILIRUBIN, TOTAL 0.2 mg/dL (0.02-1.3)
== END 2022-07-28 14:08 | disposition home or self-care (01) ==
LOC: ED 11:14
PROVIDERS: Family Medicine
DX: K52.9 Noninfective gastroenteritis and colitis, unspecified (principal); K62.89 Other specified diseases of anus and rectum; Z85.3 Personal history of malignant neoplasm of breast; Z85.01 Personal history of malignant neoplasm of esophagus; Z85.048 Personal history of other malignant neoplasm of rectum, rectosigmoid junction, and anus; L59.8 Other specified disorders of the skin and subcutaneous tissue related to radiation; K62.7 Radiation proctitis; R00.0 Tachycardia, unspecified; R00.2 Palpitations
CPT/HCPCS: Q9967

== ENCOUNTER 2022-08-10 10:10 | Emergency (ER) | payer MEDICARE ==
[~2022-08-10] VITALS: Ht 160 cm; Wt 61.2 kg
[2022-08-10] VITALS (14 sets, daily range): BP systolic 112–144; BP diastolic 40–58
[2022-08-10] MEDS ORDERED: LORTAB 1010 MG PO (14:04)
[2022-08-11] MEDS ORDERED: HYDROCO/APAP1 T10 PO (14:18)
== END 2022-08-10 14:46 | disposition home or self-care (01) ==
LOC: ED 10:10
DX: M47.816 Spondylosis without myelopathy or radiculopathy, lumbar region (principal); C20 Malignant neoplasm of rectum; Z85.3 Personal history of malignant neoplasm of breast; Z85.01 Personal history of malignant neoplasm of esophagus

== ENCOUNTER 2022-08-24 09:59 | Emergency (ER) | payer MEDICARE ==
[~2022-08-24] VITALS: Ht 160 cm; Wt 61.2 kg
[2022-08-24] VITALS (17 sets, daily range): BP systolic 105–147; BP diastolic 40–117
[~2022-08-24 09:59] MED LIST changes: +HYDROCO/APAP1 T10 PO; +LORTAB 1010 MG PO
[2022-08-24 10:37] LABS: BASO% 0.3 % (0-3); EOS% 4.9 % (0-8); HEMATOCRIT 29.2 % (37.0-47.0); HEMOGLOBIN 8.7 g/dl (12.0-16.0); IMMATURE GRANULOCYTES 0.2 % (0.0-5.0); LYMPH% 3.8 % (15-41); MEAN CORPUSCULAR HGB 27.7 pG CALC (26.0-32.0); MEAN CORPUSCULAR HGB CONC 29.8 g/dL CAL (32.0-36.0); MONO% 6.4 % (2-13); NEUT# 5.39 thou/uL (2.00-7.15); NEUT% 84.4 % (42-76); RED BLOOD COUNT 3.14 mill/uL (4.20-5.60); RED CELL DISTRI WIDTH 13.7 % (11.5-15.5)
[2022-08-24 10:54] LABS: ALBUMIN 4.4 g/dL (3.2-5.0); ALKALINE PHOSPHATASE 123 u/l (38-126); ANION GAP 12 (6-22 (CALC)); BILIRUBIN, TOTAL 0.2 mg/dL (0.02-1.3); BUN 10 mg/dL (8-23); BUN/CREATININE RATIO 14 (12-20 (CALC)); CARBON DIOXIDE 26 mmol/l (22-30); CHLORIDE 105 mmol/l (95-108); CREATININE 0.7 mg/dL (0.5-1.0); GFR FOR AFR.AMER. > 60 ML/MIN (>=60 (CALC)); GFR OTHER RACES > 60 ML/MIN (>=60 (CALC)); SGOT/AST 22 u/l (9-36); SODIUM 139 mmol/l (137-146); TOTAL PROTEIN 6.7 g/dL (6.3-8.2)
[2022-08-24 11:05] LABS: PROTHROMBIN TIME 9.9 SECONDS (9.0-12.5)
[2022-08-24 13:39] LABS: URINE BILIRUBIN - DIPSTICK NEGATIVE (NEGATIVE); URINE BLOOD DIPSTICK NEGATIVE (NEGATIVE); URINE COLOR YELLOW; URINE GLUCOSE - DIPSTICK NEGATIVE (NEGATIVE); URINE KETONE NEGATIVE (NEGATIVE); URINE LEUK ESTERASE SMALL (NEGATIVE); URINE NITRITE - DIPSTICK NEGATIVE (Negative); URINE PROTEIN - DIPSTICK NEGATIVE (NEG-TRACE); URINE SPECIFIC GRAVITY <=1.005; URINE UROBILINOGEN - DIPSTICK 0.2 E.U./dL (0.2)
[2022-08-24 13:40] LABS: URINE BACTERIA FEW hpf; URINE EPITHELIAL CELLS MODERATE EPI/hpf (0-FEW)
== END 2022-08-24 13:52 | disposition home or self-care (01) ==
LOC: ED 09:59
PROVIDERS: Family Medicine
DX: I63.9 Cerebral infarction, unspecified (principal); R20.2 Paresthesia of skin; R42 Dizziness and giddiness; R29.702 NIHSS score 2; D68.2 Hereditary deficiency of other clotting factors; E78.5 Hyperlipidemia, unspecified; F41.9 Anxiety disorder, unspecified; K21.9 Gastro-esophageal reflux disease without esophagitis; F32.A Depression, unspecified; Z87.891 Personal history of nicotine dependence; Z85.01 Personal history of malignant neoplasm of esophagus; Z85.3 Personal history of malignant neoplasm of breast; Z85.048 Personal history of other malignant neoplasm of rectum, rectosigmoid junction, and anus; Z86.718 Personal history of other venous thrombosis and embolism; Z79.01 Long term (current) use of anticoagulants

== ENCOUNTER 2022-09-15 08:20 | Emergency (ER) | payer MEDICARE ==
[~2022-09-15] VITALS: Ht 160 cm; Wt 59.4 kg
[2022-09-15 08:30] VITALS: BP 131/70
[2022-09-15 09:00] LABS: BASO% 0.5 % (0-3); EOS% 4.4 % (0-8); HEMATOCRIT 34.1 % (37.0-47.0); HEMOGLOBIN 9.9 g/dl (12.0-16.0); IMMATURE GRANULOCYTES 0.2 % (0.0-5.0); LYMPH% 6.6 % (15-41); MEAN CELL VOLUME 88.6 fL CALC (80.0-100.0); MEAN CORPUSCULAR HGB 25.7 pG CALC (26.0-32.0); MONO% 5.6 % (2-13); NEUT# 4.73 thou/uL (2.00-7.15); NEUT% 82.7 % (42-76); RED BLOOD COUNT 3.85 mill/uL (4.20-5.60); RED CELL DISTRI WIDTH 14.3 % (11.5-15.5)
[2022-09-15 09:01] VITALS: BP 119/35
[2022-09-15 09:12] LABS: ALBUMIN 4.4 g/dL (3.2-5.0); ALKALINE PHOSPHATASE 127 u/l (38-126); ANION GAP 14 (6-22 (CALC)); BILIRUBIN, TOTAL 0.2 mg/dL (0.02-1.3); BUN 16 mg/dL (8-23); BUN/CREATININE RATIO 18 (12-20 (CALC)); CARBON DIOXIDE 24 mmol/l (22-30); CHLORIDE 106 mmol/l (95-108); CREATININE 0.9 mg/dL (0.5-1.0); GFR FOR AFR.AMER. > 60 ML/MIN (>=60 (CALC)); GFR OTHER RACES > 60 ML/MIN (>=60 (CALC)); POTASSIUM 4.1 mmol/l (3.5-5.1); SGOT/AST 28 u/l (9-36); SODIUM 140 mmol/l (137-146)
[2022-09-15 09:28] VITALS: BP 127/65
[2022-09-15 09:31] VITALS: BP 138/95
[2022-09-15 12:12] LABS: URINE BILIRUBIN - DIPSTICK NEGATIVE (NEGATIVE); URINE BLOOD DIPSTICK NEGATIVE (NEGATIVE); URINE COLOR YELLOW; URINE GLUCOSE - DIPSTICK NEGATIVE (NEGATIVE); URINE KETONE NEGATIVE (NEGATIVE); URINE LEUK ESTERASE NEGATIVE (NEGATIVE); URINE PH 5.5 (4.5-8.0); URINE PROTEIN - DIPSTICK NEGATIVE (NEG-TRACE); URINE UROBILINOGEN - DIPSTICK 0.2 E.U./dL (0.2)
[2022-09-15 12:14] LABS: URINE NITRITE - DIPSTICK NEGATIVE (Negative)
[2022-09-15 12:20] VITALS: BP 122/43
[2022-09-15 13:00] VITALS: BP 122/43
== END 2022-09-15 13:05 | disposition home or self-care (01) ==
LOC: ED 08:20
PROVIDERS: Family Medicine
DX: R07.89 Other chest pain (principal); F41.9 Anxiety disorder, unspecified; K21.9 Gastro-esophageal reflux disease without esophagitis; D68.2 Hereditary deficiency of other clotting factors; Z85.048 Personal history of other malignant neoplasm of rectum, rectosigmoid junction, and anus; Z85.3 Personal history of malignant neoplasm of breast; Z85.01 Personal history of malignant neoplasm of esophagus; R22.1 Localized swelling, mass and lump, neck
CPT/HCPCS: J2060

== ENCOUNTER 2022-10-19 11:17 | Inpatient (IN) | payer MEDICARE ==
[~2022-10-19] VITALS: Ht 160 cm; Wt 70.4 kg
[2022-10-19] VITALS (15 sets, daily range): BP systolic 109–139; BP diastolic 41–102
--- NOTE | 2022-10-19 11:25 | NUR ---
PATIENT BROUGHT TO ROOM 6 FROM THE PARKING LOT. PATIENT HAVING SEVERE RECTAL PAIN STATUS POST BOWEL RESECTION 1 WEEK AGO.
[2022-10-19 11:38] LABS: BASO% 0.3 % (0-3); EOS% 1.1 % (0-8); HEMATOCRIT 30.5 % (37.0-47.0); IMMATURE GRANULOCYTES 0.6 % (0.0-5.0); LYMPH% 2.1 % (15-41); MEAN CELL VOLUME 83.3 fL CALC (80.0-100.0); MEAN CORPUSCULAR HGB 24.6 pG CALC (26.0-32.0); MEAN CORPUSCULAR HGB CONC 29.5 g/dL CAL (32.0-36.0); MONO% 5.6 % (2-13); NEUT# 6.33 thou/uL (2.00-7.15); NEUT% 90.3 % (42-76); RED BLOOD COUNT 3.66 mill/uL (4.20-5.60)
[2022-10-19 11:50] LABS: ALKALINE PHOSPHATASE 145 u/l (38-126); BUN 13 mg/dL (8-23); BUN/CREATININE RATIO 19 (12-20 (CALC)); CARBON DIOXIDE 28 mmol/l (22-30); CHLORIDE 100 mmol/l (95-108); CREATININE 0.7 mg/dL (0.5-1.0); GFR FOR AFR.AMER. > 60 ML/MIN (>=60 (CALC)); GFR OTHER RACES > 60 ML/MIN (>=60 (CALC)); SGOT/AST 37 u/l (9-36); SODIUM 138 mmol/l (137-146)
--- NOTE | 2022-10-19 11:50 | NUR ---
DR. MATUTE AT THE BEDSIDE TO ASSESS HIS PATIENT. MD INFORMED PATIENT THAT HE WOULD ADMIT HER TO THE HOSPITAL AND RUN ADDITIONAL TESTING. ORAL CONTRAST ORDERED AT THIS TIME.
[2022-10-19 11:52] LABS: ALBUMIN 2.9 g/dL (3.2-5.0); ANION GAP 13 (6-22 (CALC)); BILIRUBIN, TOTAL 0.3 mg/dL (0.02-1.3); POTASSIUM 3.2 mmol/l (3.5-5.1); TOTAL PROTEIN 4.9 g/dL (6.3-8.2)
--- NOTE | 2022-10-19 13:31 | NUR ---
PT HAS BEEN ASSISTED TO BSC, PT HAS 10/10 PAIN, AND WAS UNABLE TO URINATE. PT ASSISTED BACK TO BED, AND WOULD LIKE TO TRY A BEDPAN WHEN SHE FEELS SHE HAS TO URINATE AGAIN. PT HAS BEEN BLADDER SCANNED 200ML
--- NOTE | 2022-10-19 14:00 | NUR ---
PT TO MED SURG FROM ER. REPORT RECIEVED FROM ROMINA OSULLIVAN. PT ALERT AND ORIETNED X 4, C/O PAIN AT 7/10 ON PAIN SCALE IN RECTAL AREA AND PUBIC AREA. PT HAS IRAIDA COLOSTOMY TO LEFT ABD PLACED 1 WEEK AGO, STOMA IS RED IN COLOR. IV SITE TO LAC WITH NS @ 100 ML/HR INFUSING. PT LUNGS CLEAR. PT HAS BEDSIDE COMMODE AND BEDPAN. CALL LIGHT WITHIN REACH AND ALL SAFETY MEASURES IN PLACE. WILL CONTINUE TO OBSERVE AND MONITOR.
--- NOTE | 2022-10-19 15:56 | NUR ---
REPORT GIVEN TO TAQUERIA, PT HAS BEEN ASSISTED 2 PERSON MAX ASSIST TO BED FROM STRETCHER. UA WAS COLLECTED. PT HAS CALL LIGHT NEAR.
[2022-10-19 16:03] LABS: URINE BLOOD DIPSTICK MODERATE (NEGATIVE); URINE COLOR YELLOW; URINE GLUCOSE - DIPSTICK NEGATIVE (NEGATIVE); URINE KETONE TRACE mg/dL (NEGATIVE); URINE LEUK ESTERASE TRACE (NEGATIVE); URINE PROTEIN - DIPSTICK TRACE mg/dL (NEG-TRACE); URINE UROBILINOGEN - DIPSTICK 0.2 E.U./dL (0.2)
[2022-10-19 16:05] LABS: URINE NITRITE - DIPSTICK NEGATIVE (Negative)
[2022-10-19 16:25] LABS: URINE SQUAMOUS EPITHELIAL CELL FEW EPI/hpf (0-FEW)
--- NOTE | 2022-10-19 17:02 | NUR ---
INCENTIVE SPIROMETER PROVIDED WITH VERBAL EDUCATION ON PULMONARY HYGIENE AND ABD SPLINTING. PT VERBALIZES UNDERSTANDING AND DENIES QUESTIONS. PROVIDES DEMONSTRATION ON PROPER USE.
--- NOTE | 2022-10-19 19:50 | NUR ---
RECEIVED BEDSIDE REPORT. PT SITTING UP IN BED. ALERT AND ORIENTED. NO C/O OF PAIN AT THIS TIME. CALL LIGHT IN REACH
--- NOTE | 2022-10-20 01:07 | NUR ---
pt continues to have pain in rectum/abdomen. medicated as ordered. resting at present. will continue to monitor. has 2 tenzin drains. one in abdomen with not drainage. one in rectume. the cap is not present on the rectal tenzin drain. Pt states" The dr is aware" has minimal amt rectal drainage on pad. colostome with large amts flatus and beige liquid. iv fluids as ordered. taking fluids po well. call light in reach.
--- NOTE | 2022-10-20 04:18 | NUR ---
PT COLOSTOMY BAG REPLACED WITH NEW WAFER AND BAG DUE TO LEAKAGE. SMALL AMT BROWN LIQUID. PT TEARY. ENCOURAGEMENT GIVEN. MEDICATED FOR PAIN AND ANXIETY ORDERED. IV FLUIDS ORDERED. PT HAS IRAIDA LOWER ABDOMEN THAT APPEAR REDDENED. AREA CLEANSED. rosario. CALL LIGHT IN REACH
[2022-10-20 04:54] VITALS: BP 133/39
[2022-10-20 06:55] VITALS: BP 130/55
--- NOTE | 2022-10-20 08:00 | NUR ---
GOT REPORT FROM DYER HELPER NURSE. PATIENT ASSESSED. AOX3. NO SXS OF DISTRESS AT THIS TIME, BUT IS COMPLAINING ABOUT A LOT OF PAIN. FALL PRECAUTIONS AT THIS TIME. CALL LIGHT AND BEDSIDE TABLE WITH IN REACH. ADVISED TO CALL ME IF NEEDING ANYTHING.
[2022-10-20 11:57] LABS: URINE BILIRUBIN - DIPSTICK NEGATIVE (NEGATIVE)
--- NOTE | 2022-10-20 12:00 | NUR ---
PATIENT IN BED RESTING WELL. PATIENT HAD 1 ALICE DRAIN REMOVED AT 1107 TODAY. PATIENT TOLERATED WELL, NO COMPLAINTS AND PATIENT STATES THAT HER PAIN IS BETTER SINCE THE DRAIN WAS REMOVED.
--- NOTE | 2022-10-20 16:00 | NUR ---
PATIENT IS SLEEPING, NO SXS OF DISTRESS. FALL PRECAUTIONS STILL IN PLACE.
[2022-10-20 16:15] VITALS: BP 150/51
--- NOTE | 2022-10-20 18:12 | NUR ---
INCENTIVE SPIROMETER PROVIDED WITH PULMONARY HYGIENE EDUCATION. PT DEMONSTRATES PROPER USE. AGREES TO USE 10X Q1H.
--- NOTE | 2022-10-20 20:00 | NUR ---
PATEINT RESTING IN BED MOANING, PATIENT ALERT ORIENTED ABLE TO MAKE NEEDS KNONW, IV ON LAC NS @ 125CC/HR INFSUING WELL, ALICE DRAING ON RT ABDOMEN DRAINING SANGUINEOUS FLUID, BURP COLOSTOMY, PATEINT PERFORNED IS ISPIRATORY VOLUME 500-1000, CALL LIGT IN REACH.
[2022-10-20 21:21] VITALS: BP 134/51
--- NOTE | 2022-10-21 | NUR ---
PATIENT C/O PAIN ON RECTAL AREA AND ABDOMEN, PS 10, DUE TORADOL GIVEN AND COLOSTOMY BURP.
[2022-10-21 00:07] VITALS: BP 128/38
[2022-10-21 03:45] VITALS: BP 136/55
[2022-10-21 07:15] VITALS: BP 120/49
--- NOTE | 2022-10-21 08:00 | NUR ---
GOT REPORT FROM MODEL MAKING SUPERVISOR NURSE. PATIENT ASSESSED. AOX3. NO SXS OF DISTRESS AT THIS TIME. FALL PRECAUTIONS AT THIS TIME. CALL LIGHT AND BEDSIDE TABLE WITH IN REACH. ADVISED TO CALL ME IF NEEDING ANYTHING.
--- NOTE | 2022-10-21 10:44 | NUR ---
Patient allergy of iodine removed from Allergy list. After discussion with patient, she stated she got pancreatitis once after receiving iodine contrast. After review of records, patient has received contrast 08/12 and 09/09 for other tests without premedication and exhibited no reaction. Reviewed with patient.
--- NOTE | 2022-10-21 13:20 | NUR ---
REMOVED ALICE DRAIN IN THE RLQ. PATIENT TOLERATED WELL. IV FLUIDS TURNED OFF.
--- NOTE | 2022-10-21 16:00 | NUR ---
PATIENT HAS GOTTEN OUT OF BED TO BATHROOM AND EMPTIED HER COLOSTOMY BAG INDEPENDENTLY. PATIENT USING WALKER TO GET AROUND ROOM. NO SXS OF DISTRESS AT THIS TIME. ADVISED TO CALL IF SHE NEEDS ANYTHING.
[2022-10-21 16:28] VITALS: BP 141/57
--- NOTE | 2022-10-21 20:00 | NUR ---
RECEIVED REPORT FROM NURSE JODIE, PATIENT resting in bed, C/O ABDOMINAL PAIN AND RECTAL PAIN, PATIENT ALERT ORIENTED X 4 AMBULATORY, JUST GOT BACK FROM BATHROOM, SALINE LOCK NOTED ON LAC G 20 PATENT FLUSHES WELL, LUNG SOUNDS CLEAR, PATIENT USES ICENTIVE SPIROMETER INSPIRATORY VOULUME 500-1000 RANGE, COLOSTOMY BAG EMPTY AT THIS TIME.
[2022-10-21 20:18] VITALS: BP 123/51
--- NOTE | 2022-10-22 | NUR ---
PATEINT C/O PAIN ON ABDOMEN, PRN EZEQUIEL MARRERO, WILL REEVALUATE.
[2022-10-22 04:21] VITALS: BP 100/63
--- NOTE | 2022-10-22 04:50 | NUR ---
PATEINT C/O PAIN ABDOMEN, PRN PERCOCET GIVEN WILL REEVALUATE.
[2022-10-22 05:20] LABS: BASO% 0.2 % (0-3); HEMATOCRIT 25.1 % (37.0-47.0); HEMOGLOBIN 7.6 g/dl (12.0-16.0); IMMATURE GRANULOCYTES 0.6 % (0.0-5.0); LYMPH% 2.2 % (15-41); MEAN CELL VOLUME 83.4 fL CALC (80.0-100.0); MEAN CORPUSCULAR HGB 25.2 pG CALC (26.0-32.0); MEAN CORPUSCULAR HGB CONC 30.3 g/dL CAL (32.0-36.0); MONO% 6.5 % (2-13); NEUT# 8.62 thou/uL (2.00-7.15); NEUT% 88.5 % (42-76); RED BLOOD COUNT 3.01 mill/uL (4.20-5.60); RED CELL DISTRI WIDTH 16.6 % (11.5-15.5)
[2022-10-22 05:25] LABS: ANION GAP 8 (6-22 (CALC)); BUN 6 mg/dL (8-23); BUN/CREATININE RATIO 9 (12-20 (CALC)); CARBON DIOXIDE 27 mmol/l (22-30); CHLORIDE 105 mmol/l (95-108); CREATININE 0.7 mg/dL (0.5-1.0); GFR FOR AFR.AMER. > 60 ML/MIN (>=60 (CALC)); GFR OTHER RACES > 60 ML/MIN (>=60 (CALC)); POTASSIUM 3.6 mmol/l (3.5-5.1); SODIUM 136 mmol/l (137-146)
[2022-10-22 07:51] VITALS: BP 141/61
[2022-10-22 16:46] VITALS: BP 113/42
[2022-10-22 18:37] VITALS: BP 137/60
--- NOTE | 2022-10-22 19:00 | NUR ---
JESSICAAR RECEIVED FROM GEMINI VANEGAS.
--- NOTE | 2022-10-22 19:30 | NUR ---
ASSESSMENT COMPLETE. PATIENT ALERT AND ORIENTED X3. EXPIRATORY WEEZING NOTED BILATERALLY IN UPPER LOBES. COLOSTOMY NOTED TO LEFT LOWER QUADRANT, BROWN WATER STOOL NOTED; COLLECTION BAG BURPED. INCISION CLEAN DRY AND INTACT; 15 IRAIDA NOTED, OPEN TO AIR. PATIENT C/O PAIN OF ABDONEN AFTER REPOSITIONING SELF IN BED; TOO SOON TO MEDICATE. CALL LIGHT WITHIN REACH, INSTRUCTED TO CALL FOR ASSISTANCE.
[2022-10-22 19:32] VITALS: BP 137/60
[2022-10-22 19:36] VITALS: BP 137/60
[2022-10-23] VITALS (7 sets, daily range): BP systolic 120–143; BP diastolic 44–67
--- NOTE | 2022-10-23 01:10 | NUR ---
PATIENT AWAKE. C/O PAIN AND NAUSEA, MEDS GIVEN. REPOSITIONED FOR COMFORT. CALL LIGHT WITHIN REACH.
--- NOTE | 2022-10-23 05:29 | NUR ---
RESTING, EYES CLOSED. NO DISTRESS NOTED. CALL LIGHT WITHIN REACH.
--- NOTE | 2022-10-23 07:30 | NUR ---
patient recieved in stable condition, no s/s of distress, patient preiously just medicated for pain, patient safety precautions in place.
--- NOTE | 2022-10-23 10:14 | NUR ---
Patient wanted to walk in hallway, so we walked from her room to the window, up to the nurses station and back to her room. now patient stated she is pooped now
--- NOTE | 2022-10-23 12:00 | NUR ---
PATIENT AMBULATED IN THE HALLWAY TWICE DURING THIS SHIFT, PAIN CONTROLLED WITH PERCOCET Q 4 HOURS. PATIENT SAFETY PRECAUTIONS IN PLACE.
--- NOTE | 2022-10-23 19:54 | NUR ---
RECEIVED REPORT FROM DAYSHIFT NURSE. PT IS LAYING IN BED FOWLERS POSITION WITH NO SIGNS OR SYMPTOMS OF ANY PAIN AT THE MOMENT. ADVISED PT OF NURSE CHANGE AND OF PLAN OF CARE. CALL LIGHT WITHIN REACH AND SAFTEY PRECAUTIONS IN PLACE.
--- NOTE | 2022-10-24 00:30 | NUR ---
PT IS SLEEPING IN BED. ADVISED PT OF ABX BEING DELIVERED VIA IV. PT SHOWS NO SIGN OR SYMPTOMS OF PAIN AT THIS TIME. CALL LIGHT WITHIN REACH AND SAFETY PRECAUTIONS IN PLACE.
[2022-10-24 03:40] VITALS: BP 128/40
--- NOTE | 2022-10-24 04:05 | NUR ---
PT SLEEPING IN BED NO SIGNS OR SYMPTOMS OF PAIN AT THIS TIME. REASSESSMENT OF PT AFTER PAIN MED IS NORMAL. CALL LIGHT WITHIN REACH AND SAFETY PRECAUTIONS IN PLACE.
[2022-10-24 04:45] VITALS: BP 128/40
[2022-10-24 05:05] LABS: BASO% 0.2 % (0-3); HEMATOCRIT 24.8 % (37.0-47.0); HEMOGLOBIN 7.5 g/dl (12.0-16.0); LYMPH% 1.9 % (15-41); MEAN CELL VOLUME 82.1 fL CALC (80.0-100.0); MEAN CORPUSCULAR HGB 24.8 pG CALC (26.0-32.0); MEAN CORPUSCULAR HGB CONC 30.2 g/dL CAL (32.0-36.0); MONO% 7.8 % (2-13); NEUT# 8.2 thou/uL (2.00-7.15); NEUT% 87.1 % (42-76); RED BLOOD COUNT 3.02 mill/uL (4.20-5.60); RED CELL DISTRI WIDTH 16.7 % (11.5-15.5)
[2022-10-24 05:18] LABS: ANION GAP 10 (6-22 (CALC)); BUN 5 mg/dL (8-23); BUN/CREATININE RATIO 8 (12-20 (CALC)); CARBON DIOXIDE 29 mmol/l (22-30); CHLORIDE 100 mmol/l (95-108); CREATININE 0.7 mg/dL (0.5-1.0); GFR FOR AFR.AMER. > 60 ML/MIN (>=60 (CALC)); GFR OTHER RACES > 60 ML/MIN (>=60 (CALC)); MAGNESIUM 1.7 mg/dL (1.6-2.3); POTASSIUM 3.6 mmol/l (3.5-5.1); SODIUM 135 mmol/l (137-146)
[2022-10-24 07:48] VITALS: BP 147/52
--- NOTE | 2022-10-24 15:25 | NUR ---
every other staple removed from abdominal incision as per physician's order. pt tolerated well. steristrips placed over wound. wound appears clean and dry with very minimal redness around edges and no signs of infection.
[2022-10-24 16:04] VITALS: BP 126/51
--- NOTE | 2022-10-24 19:10 | NUR ---
Report received from Alexander thorpe Rn
[2022-10-24 20:25] VITALS: BP 156/56
--- NOTE | 2022-10-24 20:38 | NUR ---
Patient resting, up to the recliner at this time. Patient states her pain is a 6/10 at this time. Medicated with PO pain medication.
--- NOTE | 2022-10-24 23:30 | NUR ---
Patient given IV dilaudid. Pain 10/10. Patient complaining of rectal pain. Patient states she has an opening on her bottom, patient has a wound on her bottom, black suture noted three carlos and another black suture, wound appears to have opened and purulent drainage noted. Bruise noted on R buttocks. Verified with second nurse Marisela Adler LPN. Photos taken.
--- NOTE | 2022-10-25 03:41 | NUR ---
Patient repostioned throughout night to offload weight from bottom, and hep gas pains. Patient reports feeling better this AM. Call light and bedside table within reach.
[2022-10-25 04:21] VITALS: BP 118/44
[2022-10-25 07:08] VITALS: BP 112/34
--- NOTE | 2022-10-25 07:15 | NUR ---
RECIEVED REPORT,PATIENT IN BED, PAIN OF 7 , SAYS SHE IS TIRED AND HAS NO ENERYGY, COLOSTOMY BAG BURPED, NO REDNESS TO INCISION SITES, MUCUS NOTED AT THE ANUS. BOWEL SOUNDS ARE HYPOACTIVE, STATED SHE HAD SOME STOOL OUT HER COLOSTMY BAG.
--- NOTE | 2022-10-25 07:35 | NUR ---
Dr Giles notifed of purulent incicion site at rectum.
--- NOTE | 2022-10-25 12:00 | NUR ---
PATIENT WENT TO ULTRASOUND FOR LEFT LEG SWELLING, MEDICATED FOR PAIN, NAUSEA UPON RETURN. PATIENT SAFETY MEASURES IN PLACE.
--- NOTE | 2022-10-25 16:18 | NUR ---
PATIENT IN BED, STATE SHE IS FEELING SOB AGAIN, DECLINE HER ANXIETY MED TILL LATER AND WILL WORK THROUGH IT. PAIN IS UNDER CONTROL NO S/S OF DISTRESS, FAMILY AT BEDSIDE.
[2022-10-25 16:34] VITALS: BP 143/52
[2022-10-25 18:52] VITALS: BP 139/52
--- NOTE | 2022-10-25 19:35 | NUR ---
RECEIVED REPORT FROM DAYSHIFT NURSE. ADVISED PT OF SHIFT AND NURSE CHANGE. PT ACKNOWLEGED. PT IS LYING IN BED COMFORTABLY. PT SHOWS NO SIGNS AND OR HAS NO COMPLAINTS OF ANY PAIN AT THIS TIME. CALL LIGHT WITHIN REACH AND SAFETY PRECAUTION IN PLACE.
--- NOTE | 2022-10-26 00:10 | NUR ---
PT IS AWAKE IN BED STATES THAT PAIN HAS GOTTEN BETTER. ADMINISTERED IV MED. CALL LIGHT WITHIN REACH AND SAFETY PRECAUTIONS IN PLACE.
--- NOTE | 2022-10-26 04:04 | NUR ---
PT IS SLEEPING COMFORTABLY AND SHOWS NO SIGNS OF DISTRESS AT THIS MOMENT. CALL LIGHT WITHIN REACH AND SAFTEY PRECUATION IN PLACE.
[2022-10-26 04:29] VITALS: BP 125/58
[2022-10-26 06:07] LABS: BASO% 0.3 % (0-3); EOS% 1.7 % (0-8); HEMATOCRIT 27.9 % (37.0-47.0); HEMOGLOBIN 8.3 g/dl (12.0-16.0); IMMATURE GRANULOCYTES 0.6 % (0.0-5.0); LYMPH% 1.5 % (15-41); MEAN CELL VOLUME 82.3 fL CALC (80.0-100.0); MEAN CORPUSCULAR HGB 24.5 pG CALC (26.0-32.0); MEAN CORPUSCULAR HGB CONC 29.7 g/dL CAL (32.0-36.0); MONO% 5.8 % (2-13); NEUT# 10.57 thou/uL (2.00-7.15); NEUT% 90.1 % (42-76); RED BLOOD COUNT 3.39 mill/uL (4.20-5.60); RED CELL DISTRI WIDTH 16.9 % (11.5-15.5)
[2022-10-26 06:26] LABS: ALBUMIN 2.8 g/dL (3.2-5.0); ALKALINE PHOSPHATASE 89 u/l (38-126); ANION GAP 9 (6-22 (CALC)); BILIRUBIN, TOTAL 0.2 mg/dL (0.02-1.3); BUN 5 mg/dL (8-23); BUN/CREATININE RATIO 7 (12-20 (CALC)); CARBON DIOXIDE 30 mmol/l (22-30); CHLORIDE 99 mmol/l (95-108); CREATININE 0.7 mg/dL (0.5-1.0); GFR FOR AFR.AMER. > 60 ML/MIN (>=60 (CALC)); GFR OTHER RACES > 60 ML/MIN (>=60 (CALC)); MAGNESIUM 1.7 mg/dL (1.6-2.3); POTASSIUM 3.7 mmol/l (3.5-5.1); SGOT/AST 18 u/l (9-36); SODIUM 134 mmol/l (137-146); TOTAL PROTEIN 5.2 g/dL (6.3-8.2)
[2022-10-26 07:26] VITALS: BP 140/51
--- NOTE | 2022-10-26 08:00 | NUR ---
PATIENT RECIEVED IN SATBLE CONDITION, NO S/S OF DISTRESS. PATIENT SAFETY PRECAUTIONS IN PLACE
--- NOTE | 2022-10-26 09:00 | NUR ---
PATIENT PICKED UP FOR PROCEDURE. LEFT FLOOR IN STABLE CONDITION
--- NOTE | 2022-10-26 12:00 | NUR ---
PATIENT RECIEVED BACK FOR OR, STABLE CONDITION REPORT RECIEVED, NO COMPLAINTS OF PAIN, PATIENT SAFTEY PRECAUTIONS IN PLACE, ORDERS RECIEVED FOR DRESSING CHANGES, TID, MOIST TO DRY FLUFF GAUZE TO START PM ON 10/26/22.
--- NOTE | 2022-10-26 12:39 | NUR ---
SPOKE WITH PHARMACIST Neo CAMACHO AT REQUEST OF PRIMARY NURSE Oz PAUL RN FOR CLARIFICATION OF XARELTO. PER Neo CAMACHO XARELTO IS PRESCRIBED TO BE GIVEN TODAY AFTER PROCEDURE. CLARIFICATION ENDORSED TO Oz PAUL RN.
--- NOTE | 2022-10-26 16:00 | NUR ---
PATIENT RESTING IN BED NO S/S OF DISTRESS, PATIENT SAFETY MEASURES IN PLACE.
[2022-10-26 16:03] VITALS: BP 139/75
[2022-10-26 18:57] VITALS: BP 141/51
--- NOTE | 2022-10-26 20:00 | NUR ---
RECEIVED REPORT FROM PRABHA SINGLETARY, PATIENT RESTING IN BED, IV ON LAC G 20 PATENT FLUSHES WELL, COLOSTOMY BAG IN PLACE, BURPED, PATIENT S/P WOUND WASHOUT PERIRECTAL AREA DRESSING IN PLACED, PATIENT ON PUREWICK, C/O PAIN WILL MEDICATE, CALL LIGHT IN REACH/
--- NOTE | 2022-10-26 22:48 | NUR ---
LINENS CHANGE, PATIENT HAS A NEW PUREWICK, PATIENT PERINEAL DRESSING CHANGED.TOLERATED.
[2022-10-26 23:43] VITALS: BP 101/47
--- NOTE | 2022-10-27 | NUR ---
DUE ZOSYN CURRENTLY INFUSING NOT IN DISTRESS CALL LIGHT IN REACH.
--- NOTE | 2022-10-27 03:20 | NUR ---
PATIENT RESTING IN BED WITH EYES CLOSED, BREATHING EVEN UNLABORED CALL LIGHT IN REACH.
[2022-10-27 03:42] VITALS: BP 96/67
[2022-10-27 04:00] VITALS: BP 151/53
[2022-10-27 05:34] LABS: BASO% 0.3 % (0-3); EOS% 1.7 % (0-8); HEMATOCRIT 27.6 % (37.0-47.0); HEMOGLOBIN 8.3 g/dl (12.0-16.0); IMMATURE GRANULOCYTES 0.6 % (0.0-5.0); LYMPH% 1.9 % (15-41); MEAN CELL VOLUME 83.6 fL CALC (80.0-100.0); MEAN CORPUSCULAR HGB 25.2 pG CALC (26.0-32.0); MEAN CORPUSCULAR HGB CONC 30.1 g/dL CAL (32.0-36.0); NEUT# 7.84 thou/uL (2.00-7.15); NEUT% 89.5 % (42-76); RED BLOOD COUNT 3.3 mill/uL (4.20-5.60); RED CELL DISTRI WIDTH 17.1 % (11.5-15.5)
[2022-10-27 05:46] LABS: ALBUMIN 2.9 g/dL (3.2-5.0); ALKALINE PHOSPHATASE 89 u/l (38-126); ANION GAP 7 (6-22 (CALC)); BILIRUBIN, TOTAL 0.2 mg/dL (0.02-1.3); BUN 5 mg/dL (8-23); BUN/CREATININE RATIO 6 (12-20 (CALC)); CARBON DIOXIDE 32 mmol/l (22-30); CHLORIDE 101 mmol/l (95-108); CREATININE 0.7 mg/dL (0.5-1.0); GFR FOR AFR.AMER. > 60 ML/MIN (>=60 (CALC)); GFR OTHER RACES > 60 ML/MIN (>=60 (CALC)); POTASSIUM 3.4 mmol/l (3.5-5.1); SGOT/AST 22 u/l (9-36); SODIUM 136 mmol/l (137-146); TOTAL PROTEIN 5.3 g/dL (6.3-8.2)
[2022-10-27 06:55] VITALS: BP 125/43
--- NOTE | 2022-10-27 08:43 | NUR ---
DR. MELENDEZ JUST ROUNDED AND CHANGED DRESSING TO PEII AREA.
--- NOTE | 2022-10-27 09:15 | NUR ---
DR MELENDEZ ROUNDED, REMOVED OLD PACKING FROM SURGICAL INSISION AND REPACKED WITH 2 4X4 NEHAL HE THEN INFORMED PT HE WOULD MAKE DRESSING CHANGES TWICE DAILY.
--- NOTE | 2022-10-27 12:00 | NUR ---
RESTING IN BED AFTER HAVING MEAL, C/O INCREASED SWELLING TO LEFT FOOT, NURSE OFFERED PILLOWS AND ELEVATED LEGS THEN REPORT CONCERN TO DIRECTOR APPAREL, WILL CONTINUE TO MONITOR.
--- NOTE | 2022-10-27 16:00 | NUR ---
RESTING IN BED, REFUSED TO HAVE DRESSING CHANGED AT 1600 BUT STATED SHE'D RATHER HAVE IT DONE CLOSER TO BEDTIME, ONCOMING RN RECEIVED PT AND WILL CONTINUE CARE.
[2022-10-27 19:20] VITALS: BP 139/51
--- NOTE | 2022-10-27 19:46 | NUR ---
RECEIVED BEDSIDE REPORT. PT IS ALERT AND ORIENTED. SITTING UP IN BED WATCHING TV. NO C/O OFFERED AT THIS TIME. CALL LIGHT IS IN REACH.
--- NOTE | 2022-10-27 23:09 | NUR ---
dressing to anal wound changed as ordered. small amt pink drainage noted. premedicated with dilaudid with good effect
--- NOTE | 2022-10-28 00:48 | NUR ---
pt sleeping well at this time. call light in reach.
--- NOTE | 2022-10-28 05:08 | NUR ---
pt weighed by bed scale. sliding scale is broken. RN notified.
[2022-10-28 05:32] LABS: BASO% 0.4 % (0-3); EOS% 3.4 % (0-8); IMMATURE GRANULOCYTES 0.4 % (0.0-5.0); MEAN CELL VOLUME 83.3 fL CALC (80.0-100.0); MEAN CORPUSCULAR HGB 24.7 pG CALC (26.0-32.0); MEAN CORPUSCULAR HGB CONC 29.6 g/dL CAL (32.0-36.0); MONO% 7.8 % (2-13); NEUT# 6.5 thou/uL (2.00-7.15); RED BLOOD COUNT 3.24 mill/uL (4.20-5.60); RED CELL DISTRI WIDTH 17.5 % (11.5-15.5)
[2022-10-28 05:59] LABS: ALBUMIN 2.7 g/dL (3.2-5.0); ALKALINE PHOSPHATASE 76 u/l (38-126); ANION GAP 5 (6-22 (CALC)); BUN 4 mg/dL (8-23); BUN/CREATININE RATIO 6 (12-20 (CALC)); CARBON DIOXIDE 31 mmol/l (22-30); CHLORIDE 101 mmol/l (95-108); CREATININE 0.7 mg/dL (0.5-1.0); GFR FOR AFR.AMER. > 60 ML/MIN (>=60 (CALC)); GFR OTHER RACES > 60 ML/MIN (>=60 (CALC)); MAGNESIUM 1.7 mg/dL (1.6-2.3); POTASSIUM 3.6 mmol/l (3.5-5.1); SGOT/AST 24 u/l (9-36); SODIUM 134 mmol/l (137-146); TOTAL PROTEIN 4.9 g/dL (6.3-8.2)
--- NOTE | 2022-10-28 07:20 | NUR ---
PERFORMED BEDSIDE REPORT WITH DIRECT MARKETING INTERN NURSE. PT NOTED LAYING SUPINE IN BED SLEEPING AT THIS TIME. NO S/S OF DISTRESS. CALL LIGHT WITHIN REACH AND SAFETY PRECAUTIONS IN PLACE.
[2022-10-28 07:57] VITALS: BP 149/54
[2022-10-28] MEDS ORDERED: AMBIEN5 MG PO (10:52)
[2022-10-28] MEDS ORDERED: XARELTO15 MG PO (10:52)
[2022-10-28] MEDS ORDERED: XANAX0.25 MG PO (10:52)
[2022-10-28] MEDS ORDERED: PERCOCET 5/325M1 TAB PO (10:52)
--- NOTE | 2022-10-28 12:29 | NUR ---
PT LAYING DOWN IN BED, AT BEDSIDE AT THIS TIME. PT EDUCATED ON TRANSPORT TIME. DENIES ANY PAIN AT THIS TIME. CALL LIGHT WITHIN REACH AND SAFETY PRECAUTIONS IN PLACE.
--- NOTE | 2022-10-28 14:05 | NUR ---
IRAIDA REMOVED FROM PT SURGICAL INCISION PER MD ORDERS. PT TOLOERATED WELL AND SITE APPEARS HEALTHY AND INTACT.
--- NOTE | 2022-10-28 16:12 | NUR ---
PT IS LAYING IN BED RESTING COMFORTABLY AWAITING TRANSPORT. DISCHARGE INSTRUCTIONS HAVE BEEN GIVEN. DENIES ANY PAIN. CALL LIGHT WITHIN REACH AND SAFETY PRECAUTIONS IN PLACE.
--- NOTE | 2022-10-28 17:40 | NUR ---
Discharge instructions given. Patient verbalizes understanding of same. Discharged in stable condition via Wheelchair to [facility] with staff. All belongings sent with pt. IV site discontinued, cath intact. No edema , no redness, voices no discomfort.
== END 2022-10-28 17:40 | DRG 863 ==
LOC: ED 11:17 → ED-I 11:50 → ED 12:25 → MS2 12:26
PROVIDERS: Internal Medicine; Nurse Practitioner; Nurse Practitioner Family; ADMIT Surgery; ATTEND Surgery
PROC: 0HD9XZZ Extraction of Perineum Skin, External Approach (ICD-10-PCS; principal; 2022-10-26)
DX: T81.41XA Infection following a procedure, superficial incisional surgical site, initial encounter (principal); D68.2 Hereditary deficiency of other clotting factors; J91.8 Pleural effusion in other conditions classified elsewhere; I82.442 Acute embolism and thrombosis of left tibial vein; T81.31XA Disruption of external operation (surgical) wound, not elsewhere classified, initial encounter; L03.315 Cellulitis of perineum; G89.18 Other acute postprocedural pain; I50.9 Heart failure, unspecified; K21.9 Gastro-esophageal reflux disease without esophagitis; F41.9 Anxiety disorder, unspecified; F32.A Depression, unspecified; Y83.6 Removal of other organ (partial) (total) as the cause of abnormal reaction of the patient, or of later complication, without mention of misadventure at the time of the procedure; Z87.891 Personal history of nicotine dependence; Z93.3 Colostomy status; Z85.01 Personal history of malignant neoplasm of esophagus; Z85.3 Personal history of malignant neoplasm of breast; Z85.048 Personal history of other malignant neoplasm of rectum, rectosigmoid junction, and anus; Z86.718 Personal history of other venous thrombosis and embolism; Z90.49 Acquired absence of other specified parts of digestive tract; Z79.01 Long term (current) use of anticoagulants; Z20.822 Contact with and (suspected) exposure to COVID-19
CPT/HCPCS: C9290; G0378; J0131; J1650; Q9967

== ENCOUNTER 2022-11-09 15:26 | Emergency (ER) | payer MEDICARE ==
[~2022-11-09] VITALS: Ht 160 cm; Wt 56.0 kg
[~2022-11-09 15:26] MED LIST changes: +XARELTO15 MG PO
[2022-11-09 16:01] LABS: BASO% 0.3 % (0-3); EOS% 1.4 % (0-8); IMMATURE GRANULOCYTES 0.4 % (0.0-5.0); LYMPH% 5.6 % (15-41); MEAN CELL VOLUME 81.8 fL CALC (80.0-100.0); MEAN CORPUSCULAR HGB 23.8 pG CALC (26.0-32.0); MEAN CORPUSCULAR HGB CONC 29.1 g/dL CAL (32.0-36.0); NEUT# 6.08 thou/uL (2.00-7.15); NEUT% 87.3 % (42-76); RED BLOOD COUNT 4.5 mill/uL (4.20-5.60); RED CELL DISTRI WIDTH 18.1 % (11.5-15.5)
[2022-11-09 16:11] LABS: HEMATOCRIT 36.8 % (37.0-47.0); HEMOGLOBIN 10.7 g/dl (12.0-16.0)
[2022-11-09 16:21] LABS: ANION GAP 14 (6-22 (CALC)); BUN 14 mg/dL (8-23); BUN/CREATININE RATIO 20 (12-20 (CALC)); CARBON DIOXIDE 25 mmol/l (22-30); CHLORIDE 104 mmol/l (95-108); CREATININE 0.7 mg/dL (0.5-1.0); GFR FOR AFR.AMER. > 60 ML/MIN (>=60 (CALC)); GFR OTHER RACES > 60 ML/MIN (>=60 (CALC)); POTASSIUM 4.3 mmol/l (3.5-5.1); SGOT/AST 22 u/l (9-36); SODIUM 138 mmol/l (137-146)
[2022-11-09 16:32] LABS: ALBUMIN 3.6 g/dL (3.2-5.0); ALKALINE PHOSPHATASE 184 u/l (38-126); BILIRUBIN, TOTAL 0.3 mg/dL (0.02-1.3); TOTAL PROTEIN 6.1 g/dL (6.3-8.2)
[2022-11-09 18:32] VITALS: BP 113/63
== END 2022-11-09 18:50 | disposition home or self-care (01) ==
LOC: ED 15:26
PROVIDERS: Family Medicine
DX: T81.31XA Disruption of external operation (surgical) wound, not elsewhere classified, initial encounter (principal); Y83.9 Surgical procedure, unspecified as the cause of abnormal reaction of the patient, or of later complication, without mention of misadventure at the time of the procedure; Z85.048 Personal history of other malignant neoplasm of rectum, rectosigmoid junction, and anus; Z85.3 Personal history of malignant neoplasm of breast; Z85.01 Personal history of malignant neoplasm of esophagus; Z90.49 Acquired absence of other specified parts of digestive tract

== ENCOUNTER 2022-12-03 15:46 | Emergency (ER) | payer MEDICARE ==
[~2022-12-03] VITALS: Ht 160 cm; Wt 62.0 kg
[2022-12-03] VITALS (10 sets, daily range): BP systolic 114–138; BP diastolic 41–86
[~2022-12-03 15:46] MED LIST changes: +LIDOCAINE TOP
[2022-12-03 16:33] LABS: BASO% 0.5 % (0-3); EOS% 0.8 % (0-8); HEMATOCRIT 31.3 % (37.0-47.0); HEMOGLOBIN 9.2 g/dl (12.0-16.0); IMMATURE GRANULOCYTES 0.2 % (0.0-5.0); LYMPH% 3.2 % (15-41); MEAN CORPUSCULAR HGB 24.4 pG CALC (26.0-32.0); MEAN CORPUSCULAR HGB CONC 29.4 g/dL CAL (32.0-36.0); MONO% 7.4 % (2-13); NEUT# 5.79 thou/uL (2.00-7.15); NEUT% 87.9 % (42-76); RED BLOOD COUNT 3.77 mill/uL (4.20-5.60); RED CELL DISTRI WIDTH 19.6 % (11.5-15.5)
[2022-12-03 16:44] LABS: ALBUMIN 3.5 g/dL (3.2-5.0); ALKALINE PHOSPHATASE 148 u/l (38-126); ANION GAP 14 (6-22 (CALC)); BILIRUBIN, TOTAL 0.4 mg/dL (0.02-1.3); BUN 13 mg/dL (8-23); BUN/CREATININE RATIO 20 (12-20 (CALC)); CARBON DIOXIDE 25 mmol/l (22-30); CHLORIDE 103 mmol/l (95-108); CREATININE 0.6 mg/dL (0.5-1.0); GFR FOR AFR.AMER. > 60 ML/MIN (>=60 (CALC)); GFR OTHER RACES > 60 ML/MIN (>=60 (CALC)); LIPASE < 10 u/l (23-300); POTASSIUM 4.1 mmol/l (3.5-5.1); SGOT/AST 23 u/l (9-36); SODIUM 138 mmol/l (137-146); TOTAL PROTEIN 6.3 g/dL (6.3-8.2)
[2022-12-03 18:32] LABS: URINE BLOOD DIPSTICK MODERATE (NEGATIVE); URINE COLOR YELLOW; URINE GLUCOSE - DIPSTICK NEGATIVE (NEGATIVE); URINE KETONE TRACE mg/dL (NEGATIVE); URINE PROTEIN - DIPSTICK 100 mg/dL (NEG-TRACE); URINE SPECIFIC GRAVITY >=1.030; URINE UROBILINOGEN - DIPSTICK 0.2 E.U./dL (0.2)
[2022-12-03 18:34] LABS: URINE BILIRUBIN - DIPSTICK SEE COMMNET (NEGATIVE); URINE LEUK ESTERASE MODERATE (NEGATIVE); URINE NITRITE - DIPSTICK NEGATIVE (Negative); URINE WBC TNTC WBC/hpf (0-5)
[2022-12-03 18:35] LABS: URINE BACTERIA FEW hpf
[2022-12-08] MEDS ORDERED: PERCOCET 5/325M1 TAB PO (09:04)
== END 2022-12-03 23:39 | disposition home or self-care (01) ==
LOC: ED 15:46
PROVIDERS: Family Medicine
DX: K62.89 Other specified diseases of anus and rectum (principal); R10.84 Generalized abdominal pain; Z85.048 Personal history of other malignant neoplasm of rectum, rectosigmoid junction, and anus; Z93.3 Colostomy status
CPT/HCPCS: Q9967

== ENCOUNTER 2023-03-08 06:48 | Day surgery (SDC) | payer MEDICARE ==
[~2023-03-08] VITALS: Ht 157.5 cm; Wt 58.5 kg
[2023-03-08] MEDS ORDERED: PROTONIX40 M2 PO (09:06)
[2023-03-08 09:33] VITALS: BP 142/75
[2023-03-09] MEDS ORDERED: PERCOCET 5/325M1 TAB PO (13:09)
== END 2023-03-08 09:45 | disposition home or self-care (01) ==
LOC: ENDO 06:48 → ORM 09:30 → ENDO 09:45
PROVIDERS: ATTEND Surgery
PROC: 0DJD8ZZ Inspection of Lower Intestinal Tract, Via Natural or Artificial Opening Endoscopic (ICD-10-PCS; principal; 2023-03-08)
PROC: 0DB98ZX Excision of Duodenum, Via Natural or Artificial Opening Endoscopic, Diagnostic (ICD-10-PCS; 2023-03-08)
PROC: 0WBNXZX Excision of Female Perineum, External Approach, Diagnostic (ICD-10-PCS; 2023-03-08)
DX: D50.9 Iron deficiency anemia, unspecified (principal); K57.30 Diverticulosis of large intestine without perforation or abscess without bleeding; K26.9 Duodenal ulcer, unspecified as acute or chronic, without hemorrhage or perforation; K29.80 Duodenitis without bleeding; K44.9 Diaphragmatic hernia without obstruction or gangrene; K29.70 Gastritis, unspecified, without bleeding; T81.89XA Other complications of procedures, not elsewhere classified, initial encounter; F41.9 Anxiety disorder, unspecified; D68.2 Hereditary deficiency of other clotting factors; E78.5 Hyperlipidemia, unspecified; Y83.6 Removal of other organ (partial) (total) as the cause of abnormal reaction of the patient, or of later complication, without mention of misadventure at the time of the procedure; Z90.49 Acquired absence of other specified parts of digestive tract; Z85.048 Personal history of other malignant neoplasm of rectum, rectosigmoid junction, and anus; Z85.3 Personal history of malignant neoplasm of breast; Z87.891 Personal history of nicotine dependence

== ENCOUNTER 2023-06-21 11:24 | Emergency (ER) | payer MEDICARE ==
[2023-06-21] VITALS (17 sets, daily range): BP systolic 128–189; BP diastolic 38–77
[~2023-06-21] VITALS: Ht 160 cm; Wt 63.0 kg
[~2023-06-21 11:24] MED LIST changes: +BACTRIM DS1 TAB PO; +KEFLEX500 MG PO; +XANAX0.5 MG PO
[2023-06-21 11:55] LABS: BASO% 0.3 % (0-3); IMMATURE GRANULOCYTES 0.2 % (0.0-5.0); LYMPH% 3.8 % (15-41); MEAN CELL VOLUME 98.3 fL CALC (80.0-100.0); MEAN CORPUSCULAR HGB 31.2 pG CALC (26.0-32.0); MEAN CORPUSCULAR HGB CONC 31.7 g/dL CAL (32.0-36.0); MONO% 5.4 % (2-13); NEUT# 5.45 thou/uL (2.00-7.15); NEUT% 89.3 % (42-76); RED BLOOD COUNT 4.14 mill/uL (4.20-5.60); RED CELL DISTRI WIDTH 14.5 % (11.5-15.5)
[2023-06-21 12:08] LABS: HEMATOCRIT 40.7 % (37.0-47.0); HEMOGLOBIN 12.9 g/dl (12.0-16.0)
[2023-06-21 12:21] LABS: ANION GAP 14 (6-22 (CALC)); BILIRUBIN, TOTAL 0.7 mg/dL (0.02-1.3); BUN 13 mg/dL (8-23); BUN/CREATININE RATIO 15 (12-20 (CALC)); CARBON DIOXIDE 21 mmol/l (22-30); CHLORIDE 107 mmol/l (95-108); CREATININE 0.9 mg/dL (0.5-1.0); GFR FOR AFR.AMER. > 60 ML/MIN (>=60 (CALC)); GFR OTHER RACES > 60 ML/MIN (>=60 (CALC)); POTASSIUM 4.4 mmol/l (3.5-5.1); SGOT/AST 30 u/l (9-36); SODIUM 137 mmol/l (137-146)
[2023-06-21 12:31] LABS: ALBUMIN 4.3 g/dL (3.2-5.0); ALKALINE PHOSPHATASE 105 u/l (38-126); TOTAL PROTEIN 6.7 g/dL (6.3-8.2)
[2023-06-21] MEDS ORDERED: NAPROXEN500 MG PO (15:15)
[2023-06-21] MEDS ORDERED: METHOCARBAMOL500 MG PO (15:15)
[2023-06-21] MEDS ORDERED: PERCOCET 5/325M1 TAB PO (15:15)
== END 2023-06-21 16:25 | disposition home or self-care (01) ==
LOC: ED 11:24
PROVIDERS: Family Medicine
DX: S22.089A Unspecified fracture of T11-T12 vertebra, initial encounter for closed fracture (principal); Z91.81 History of falling; W19.XXXA Unspecified fall, initial encounter; Z20.822 Contact with and (suspected) exposure to COVID-19

== ENCOUNTER 2023-06-22 11:32 | Observation (INO) | payer MEDICARE ==
[2023-06-22] VITALS (14 sets, daily range): BP systolic 100–157; BP diastolic 34–106
[~2023-06-22] VITALS: Ht 160 cm; Wt 59.0 kg
[~2023-06-22 11:32] MED LIST changes: +METHOCARBAMOL500 MG PO; +NAPROXEN500 MG PO
[2023-06-22 12:56] LABS: BASO% 0.5 % (0-3); EOS% 4.1 % (0-8); HEMATOCRIT 36.2 % (37.0-47.0); HEMOGLOBIN 11.6 g/dl (12.0-16.0); IMMATURE GRANULOCYTES 0.2 % (0.0-5.0); LYMPH% 4.3 % (15-41); MEAN CELL VOLUME 98.9 fL CALC (80.0-100.0); MEAN CORPUSCULAR HGB 31.7 pG CALC (26.0-32.0); MONO% 7.6 % (2-13); NEUT# 5.08 thou/uL (2.00-7.15); NEUT% 83.3 % (42-76); RED BLOOD COUNT 3.66 mill/uL (4.20-5.60); RED CELL DISTRI WIDTH 14.6 % (11.5-15.5)
[2023-06-22 13:08] LABS: ALBUMIN 3.9 g/dL (3.2-5.0); ALKALINE PHOSPHATASE 95 u/l (38-126); ANION GAP 14 (6-22 (CALC)); BILIRUBIN, TOTAL 0.6 mg/dL (0.02-1.3); BUN 25 mg/dL (8-23); BUN/CREATININE RATIO 25 (12-20 (CALC)); CARBON DIOXIDE 22 mmol/l (22-30); CHLORIDE 103 mmol/l (95-108); GFR FOR AFR.AMER. > 60 ML/MIN (>=60 (CALC)); GFR OTHER RACES 54 ML/MIN (>=60 (CALC)); POTASSIUM 4.6 mmol/l (3.5-5.1); SGOT/AST 24 u/l (9-36); SODIUM 135 mmol/l (137-146); TOTAL PROTEIN 5.9 g/dL (6.3-8.2)
[2023-06-23 04:05] VITALS: BP 129/46
[2023-06-23 06:01] LABS: BASO% 0.6 % (0-3); EOS% 8.2 % (0-8); HEMATOCRIT 32.2 % (37.0-47.0); HEMOGLOBIN 10.4 g/dl (12.0-16.0); IMMATURE GRANULOCYTES 0.2 % (0.0-5.0); LYMPH% 6.8 % (15-41); MEAN CELL VOLUME 100.3 fL CALC (80.0-100.0); MEAN CORPUSCULAR HGB 32.4 pG CALC (26.0-32.0); MEAN CORPUSCULAR HGB CONC 32.3 g/dL CAL (32.0-36.0); MONO% 11.2 % (2-13); NEUT# 3.64 thou/uL (2.00-7.15); RED BLOOD COUNT 3.21 mill/uL (4.20-5.60); RED CELL DISTRI WIDTH 14.5 % (11.5-15.5)
[2023-06-23 06:23] LABS: ALKALINE PHOSPHATASE 74 u/l (38-126); ANION GAP 12 (6-22 (CALC)); BUN 21 mg/dL (8-23); BUN/CREATININE RATIO 24 (12-20 (CALC)); CARBON DIOXIDE 22 mmol/l (22-30); CHLORIDE 104 mmol/l (95-108); CREATININE 0.9 mg/dL (0.5-1.0); GFR FOR AFR.AMER. > 60 ML/MIN (>=60 (CALC)); GFR OTHER RACES > 60 ML/MIN (>=60 (CALC)); MAGNESIUM 1.9 mg/dL (1.6-2.3); POTASSIUM 4.6 mmol/l (3.5-5.1); SGOT/AST 20 u/l (9-36); SODIUM 133 mmol/l (137-146); TOTAL PROTEIN 4.9 g/dL (6.3-8.2)
[2023-06-23 06:25] VITALS: BP 109/44
[2023-06-23 06:32] LABS: BILIRUBIN, TOTAL 0.3 mg/dL (0.02-1.3)
[2023-06-23 14:20] VITALS: BP 180/80
[2023-06-23 19:06] VITALS: BP 132/54
[2023-06-24 03:53] VITALS: BP 141/55
[2023-06-24 06:18] VITALS: BP 113/49
[2023-06-24 06:42] LABS: BASO% 0.6 % (0-3); EOS% 11.3 % (0-8); HEMOGLOBIN 10.8 g/dl (12.0-16.0); IMMATURE GRANULOCYTES 0.3 % (0.0-5.0); LYMPH% 8.4 % (15-41); MEAN CELL VOLUME 98.5 fL CALC (80.0-100.0); MEAN CORPUSCULAR HGB 32.2 pG CALC (26.0-32.0); MEAN CORPUSCULAR HGB CONC 32.7 g/dL CAL (32.0-36.0); MONO% 12.7 % (2-13); NEUT# 2.31 thou/uL (2.00-7.15); NEUT% 66.7 % (42-76); RED BLOOD COUNT 3.35 mill/uL (4.20-5.60); RED CELL DISTRI WIDTH 14.1 % (11.5-15.5)
[2023-06-24 07:11] LABS: ALBUMIN 3.1 g/dL (3.2-5.0); ALKALINE PHOSPHATASE 79 u/l (38-126); ANION GAP 10 (6-22 (CALC)); BILIRUBIN, TOTAL 0.4 mg/dL (0.02-1.3); BUN 12 mg/dL (8-23); BUN/CREATININE RATIO 19 (12-20 (CALC)); CARBON DIOXIDE 24 mmol/l (22-30); CHLORIDE 107 mmol/l (95-108); CREATININE 0.6 mg/dL (0.5-1.0); GFR FOR AFR.AMER. > 60 ML/MIN (>=60 (CALC)); GFR OTHER RACES > 60 ML/MIN (>=60 (CALC)); POTASSIUM 4.3 mmol/l (3.5-5.1); SGOT/AST 18 u/l (9-36); SODIUM 137 mmol/l (137-146); TOTAL PROTEIN 5.1 g/dL (6.3-8.2)
[2023-06-24] MEDS ORDERED: LIDOCAINE TOP (12:43)
== END 2023-06-24 15:53 ==
LOC: ED 11:32 → ED-I 12:35 → ED 12:35 → MS2 13:13
PROVIDERS: Family Medicine; ADMIT Student in an Organized Health Care Education/Training Program; ATTEND Student in an Organized Health Care Education/Training Program
PROC: 0T9B70Z Drainage of Bladder with Drainage Device, Via Natural or Artificial Opening (ICD-10-PCS; principal; 2023-06-23)
DX: S22.080A Wedge compression fracture of T11-T12 vertebra, initial encounter for closed fracture (principal); C50.919 Malignant neoplasm of unspecified site of unspecified female breast; C79.89 Secondary malignant neoplasm of other specified sites; R32 Unspecified urinary incontinence; K59.03 Drug induced constipation; T40.2X5A Adverse effect of other opioids, initial encounter; F41.9 Anxiety disorder, unspecified; F32.A Depression, unspecified; W19.XXXA Unspecified fall, initial encounter; Z79.01 Long term (current) use of anticoagulants; Z90.13 Acquired absence of bilateral breasts and nipples; Z85.038 Personal history of other malignant neoplasm of large intestine; Z93.3 Colostomy status; Z86.718 Personal history of other venous thrombosis and embolism

== ENCOUNTER 2023-07-04 13:37 | Observation (INO) | payer MEDICARE ==
[~2023-07-04] VITALS: Ht 157.5 cm; Wt 132.0 kg
[2023-07-04] MEDS ORDERED: CITALOPRAM20 MG PO (13:46)
[2023-07-04] MEDS ORDERED: XANAX0.25 MG PO (13:46)
[2023-07-04] MEDS ORDERED: PROTONIX40 M2 PO (13:48)
[2023-07-04 13:56] VITALS: BP 144/45
[2023-07-04 14:17] VITALS: BP 144/45
[2023-07-04 14:27] LABS: BASO% 0.4 % (0-3); EOS% 1.4 % (0-8); HEMOGLOBIN 12.4 g/dl (12.0-16.0); IMMATURE GRANULOCYTES 0.1 % (0.0-5.0); LYMPH% 5.1 % (15-41); MEAN CELL VOLUME 98.3 fL CALC (80.0-100.0); MEAN CORPUSCULAR HGB 30.9 pG CALC (26.0-32.0); MEAN CORPUSCULAR HGB CONC 31.5 g/dL CAL (32.0-36.0); MONO% 5.9 % (2-13); NEUT# 6.32 thou/uL (2.00-7.15); NEUT% 87.1 % (42-76); RED BLOOD COUNT 4.01 mill/uL (4.20-5.60); RED CELL DISTRI WIDTH 14.4 % (11.5-15.5)
[2023-07-04 14:28] LABS: HEMATOCRIT 39.4 % (37.0-47.0)
[2023-07-04 15:10] LABS: CREATININE 1.1 mg/dL (0.5-1.0); POTASSIUM 4.3 mmol/l (3.5-5.1)
[2023-07-04 16:35] VITALS: BP 118/39
[2023-07-04 18:31] LABS: URINE BLOOD DIPSTICK Negative (NEGATIVE); URINE GLUCOSE - DIPSTICK Negative (NEGATIVE); URINE KETONE Negative (NEGATIVE); URINE LEUK ESTERASE Negative (NEGATIVE); URINE NITRITE - DIPSTICK Negative (Negative); URINE PROTEIN - DIPSTICK Trace mg/dL (NEG-TRACE); URINE UROBILINOGEN - DIPSTICK 0.2 E.U./dL (0.2)
[2023-07-04 18:32] LABS: URINE COLOR Yellow
[2023-07-04 19:46] VITALS: BP 138/53
[2023-07-04 22:27] VITALS: BP 163/64
[2023-07-05] VITALS (8 sets, daily range): BP systolic 155–179; BP diastolic 48–77
[2023-07-05 06:38] LABS: BASO% 0.7 % (0-3); EOS% 7.2 % (0-8); HEMATOCRIT 34.8 % (37.0-47.0); HEMOGLOBIN 11.2 g/dl (12.0-16.0); IMMATURE GRANULOCYTES 0.2 % (0.0-5.0); LYMPH% 9.9 % (15-41); MEAN CELL VOLUME 98.6 fL CALC (80.0-100.0); MEAN CORPUSCULAR HGB 31.7 pG CALC (26.0-32.0); MEAN CORPUSCULAR HGB CONC 32.2 g/dL CAL (32.0-36.0); MONO% 10.9 % (2-13); NEUT# 2.87 thou/uL (2.00-7.15); NEUT% 71.1 % (42-76); RED BLOOD COUNT 3.53 mill/uL (4.20-5.60); RED CELL DISTRI WIDTH 14.3 % (11.5-15.5)
[2023-07-05 06:46] LABS: ALBUMIN 3.4 g/dL (3.2-5.0); ALKALINE PHOSPHATASE 90 u/l (38-126); ANION GAP 8 (6-22 (CALC)); BILIRUBIN, TOTAL 0.4 mg/dL (0.02-1.3); BUN 15 mg/dL (8-23); BUN/CREATININE RATIO 18 (12-20 (CALC)); CARBON DIOXIDE 24 mmol/l (22-30); CHLORIDE 110 mmol/l (95-108); CREATININE 0.8 mg/dL (0.5-1.0); GFR FOR AFR.AMER. > 60 ML/MIN (>=60 (CALC)); GFR OTHER RACES > 60 ML/MIN (>=60 (CALC)); MAGNESIUM 2.3 mg/dL (1.6-2.3); POTASSIUM 4.7 mmol/l (3.5-5.1); SGOT/AST 20 u/l (9-36); SODIUM 138 mmol/l (137-146); TOTAL PROTEIN 5.6 g/dL (6.3-8.2)
[2023-07-06 00:44] VITALS: BP 140/62
[2023-07-06 05:07] LABS: BASO% 0.7 % (0-3); EOS% 5.6 % (0-8); HEMATOCRIT 38.4 % (37.0-47.0); HEMOGLOBIN 12.1 g/dl (12.0-16.0); IMMATURE GRANULOCYTES 0.2 % (0.0-5.0); LYMPH% 13.7 % (15-41); MEAN CELL VOLUME 101.1 fL CALC (80.0-100.0); MEAN CORPUSCULAR HGB 31.8 pG CALC (26.0-32.0); MEAN CORPUSCULAR HGB CONC 31.5 g/dL CAL (32.0-36.0); NEUT# 3.93 thou/uL (2.00-7.15); NEUT% 72.8 % (42-76); RED BLOOD COUNT 3.8 mill/uL (4.20-5.60); RED CELL DISTRI WIDTH 14.1 % (11.5-15.5)
[2023-07-06 05:23] LABS: ALBUMIN 3.6 g/dL (3.2-5.0); ALKALINE PHOSPHATASE 100 u/l (38-126); BUN 11 mg/dL (8-23); BUN/CREATININE RATIO 16 (12-20 (CALC)); CHLORIDE 110 mmol/l (95-108); CREATININE 0.7 mg/dL (0.5-1.0); GFR FOR AFR.AMER. > 60 ML/MIN (>=60 (CALC)); GFR OTHER RACES > 60 ML/MIN (>=60 (CALC)); MAGNESIUM 2.1 mg/dL (1.6-2.3); POTASSIUM 4.4 mmol/l (3.5-5.1); SGOT/AST 24 u/l (9-36); SODIUM 137 mmol/l (137-146); TOTAL PROTEIN 5.7 g/dL (6.3-8.2)
[2023-07-06 05:35] LABS: ANION GAP 13 (6-22 (CALC)); BILIRUBIN, TOTAL 0.6 mg/dL (0.02-1.3); CARBON DIOXIDE 18 mmol/l (22-30)
[2023-07-06 06:18] VITALS: BP 127/51
[2023-07-06 11:05] VITALS: BP 147/51
== END 2023-07-06 13:49 ==
LOC: MS2 13:37
PROVIDERS: Nurse Practitioner Family; ADMIT Internal Medicine; ATTEND Internal Medicine
DX: S22.080A Wedge compression fracture of T11-T12 vertebra, initial encounter for closed fracture (principal); K59.01 Slow transit constipation; K43.9 Ventral hernia without obstruction or gangrene; K21.9 Gastro-esophageal reflux disease without esophagitis; K58.9 Irritable bowel syndrome, unspecified; F41.9 Anxiety disorder, unspecified; F32.A Depression, unspecified; W19.XXXA Unspecified fall, initial encounter; S22.070D Wedge compression fracture of T9-T10 vertebra, subsequent encounter for fracture with routine healing; S32.030D Wedge compression fracture of third lumbar vertebra, subsequent encounter for fracture with routine healing; S32.040D Wedge compression fracture of fourth lumbar vertebra, subsequent encounter for fracture with routine healing; X58.XXXD Exposure to other specified factors, subsequent encounter; Z86.718 Personal history of other venous thrombosis and embolism; Z90.13 Acquired absence of bilateral breasts and nipples; Z93.3 Colostomy status; Z85.038 Personal history of other malignant neoplasm of large intestine; Z85.3 Personal history of malignant neoplasm of breast; Z87.891 Personal history of nicotine dependence; Z79.01 Long term (current) use of anticoagulants
CPT/HCPCS: Q9967